=== PATIENT | male | born 1965 | race Caucasian/White ===

== ENCOUNTER 2018-08-20 23:04 | Observation (INO) | payer OTHER, SELFPAY ==
[2018-08-20 23:05] VITALS: BP 115/70; PULSE 104; RESP 14; TEMP 38; O2SAT 94; BMI 26.5
--- NOTE | 2018-08-20 23:28 | DI.RAD.S_ITS ---
PROCEDURE: XR CHEST 1V INDICATIONS: chest pain TECHNIQUE: One view of the chest was acquired. COMPARISON: [facility], , CHEST 1 VIEW, 12/14/2010, 13:45. FINDINGS: Surgical changes and devices: Post surgical changes of the proximal left humerus. Lungs and pleura: Minimal streaky opacities in the left retrocardiac region likely representing atelectasis/scarring. Lungs are otherwise clear without focal consolidation. No pleural effusions or pneumothorax. Mediastinum: Mediastinal contours appear normal. Heart size is normal. Bones and chest wall: No suspicious bony lesions. Overlying soft tissues appear unremarkable. IMPRESSION: Minimal left basilar streaky opacities favored to represent atelectasis/scarring. Otherwise, no acute disease identified to explain patient's chest pain. Dictated by: Benjamín Bailon M.D. on 08/21/2018 at 8:52 Approved by: Benjamín Bailon M.D. on 08/21/2018 at 9:17
[2018-08-20] MEDS: ONDANSETRON 4 MG/2 ML INJ IV (23:41)
[2018-08-20 23:49] LABS: Add Manual Diff / Slide Review NO; Basophils Absolute Auto 0 /uL (0-100); Basophils Percent Auto 0.2 % (0-2); Eosinophils Absolute Auto 0 /uL (0-450); Eosinophils Percent Auto 0.3 % (2-4); Hematocrit 43.5 % (41-53); Hemoglobin 15.3 g/dL (13.5-17.5); INR 1.1 (0.9-1.3); Lymphocytes Absolute Auto 400 /uL (1100-4500); Lymphocytes Percent Auto 4.5 % (25-40); Mean Corpuscular HGB Conc 35.2 % (30-36); Monocytes Absolute Auto 400 /uL (0-900); Monocytes Percent Auto 5.2 % (3-14); Neutrophils Absolute Auto 7200 /uL (1500-7000); Neutrophils Percent Auto 89.8 % (50-75); Platelet Count 144 X10^3/uL (150-400); Prothrombin Time 12.2 SECONDS (10.1-12.7); Red Blood Cell Count 4.94 X10^6/uL (4.5-5.9); Red Cell Distribution Width 13.3 % (11.6-14.8); White Blood Cell Count 8.1 X10^3/uL (4.5-11.0)
[2018-08-20 23:51] LABS: PTT Partial Thromboplastin Tim 31 SECONDS (26.4-36.2)
[2018-08-20 23:53] LABS: Alanine Aminotransferase 60 IU/L (21-72); Albumin 4.3 g/dL (3.5-5.0); Albumin Globulin Ratio 1.6 (1.0-2.8); Alkaline Phosphatase 103 U/L (38-126); Aspartate Aminotransferase 48 IU/L (17-59); BUN Creatinine Ratio 18.8 (6-22); Bilirubin Total 1.4 mg/dL (0.2-1.3); Blood Urea Nitrogen 15 mg/dL (9-20); Calcium 8.9 mg/dL (8.4-10.2); Carbon Dioxide 23 mmol/L (22-32); Chloride 103 mmol/L (98-107); Creatine Kinase 253 U/L (55-170); Estimated Glomerular Filt Rate > 60.0 mL/min (>60); Globulin 2.7 g/dL (1.7-4.1); Glucose 106 mg/dL (70-100); HEMOLYSIS < 15 (0-50); Lipase 45 U/L (23-300); Potassium 3.6 mmol/L (3.4-5.1); Sodium 136 mmol/L (137-145)
[2018-08-21] VITALS (30 sets, daily range): BP systolic 101–141; BP diastolic 50–82; PULSE 90–102; RESP 8–24; TEMP 37.1–38.9; O2SAT 89–96; BMI 26.5
--- NOTE | 2018-08-21 | DI.ECHO.S_ITS ---
[facility]+ [facility] +---------+ : : [address] : : : : [id number] : : : : Phone: [phone]+ Echocardiogram Report + + :Name: ANUSHA PHILLIPS Study Date: 08/21/2018 Height: 70 in : :[facility] Weight: 185 lb : : Gender: Male BSA: 2.0 m2 : :: 1965 Age: 53 yrs BP: 141/82 mmHg: :Reason For Study: CAD : : Performed By: Riya Palacios : :Referring: ANIL ABEL : + + Interpretation Summary 1) Borderline enlarged left ventricle with mildly reduced systolic function (EF 45-50%). 2) The inferior and the inferolateral gorman are akinetic. 3) Grossly, normal right ventricular size and function. 4) No significant valvular abnormalities. 5) Compared to the Echo done 12/06/2010, LVEF has slightly improved from 40-45% to 45-50% on this study. Procedure: A two-dimensional transthoracic echocardiogram with color flow and Doppler was performed. The study quality was technically adequate. Comparison is made with the echocardiogram of 12-16-10. The patient was in normal sinus rhythm during the exam. Left Ventricle: The left ventricle is borderline dilated. There is mild asymmetric left ventricular hypertrophy. The ejection fraction is estimated to be 45-50%. Left ventricular systolic function is mildly reduced. The inferior and the inferolateral gorman are akinetic. Diastolic parameters suggest a relaxation abnormality of the left ventricle, consistent with probable normal filling pressures. Right Ventricle: The right ventricle grossly appears normal in size with probable normal systolic function. Atria: The left atrium is mildly dilated. Right atrial size is normal. The interatrial septum is intact with no evidence for an atrial septal defect. Mitral Valve: The mitral valve is normal in structure and function. There is trace mitral regurgitation. Aortic Valve: The aortic valve is trileaflet. The aortic valve opens well. There is trace aortic regurgitation. Tricuspid Valve: The tricuspid valve is normal in structure and function. There is a trace or physiologic amount of tricuspid regurgitation. The right ventricular systolic pressure is estimated to be at least 31 mmHg based on an estimated right atrial pressure of 3 mm Hg. Pulmonic Valve: The pulmonic valve is not well seen, but is grossly normal. There is no pulmonic valvular regurgitation. Great Vessels: The aortic root is normal size. The dimensions of the ascending aorta are normal. The aortic arch is normal in size. The IVC is of normal diameter and collapses greater than 50% with a sniff. This suggests a low right atrial pressure of 3 mm Hg. Pericardium/ Pleura There is no pericardial effusion. There is no pleural effusion. MMode/2D Measurements & Calculations LVIDd: 6.0 cm Ao root diam: 3.4 cm LVIDs: 5.3 cm Aortic Jxn: 2.9 cm FS: 12.2 % asc Aorta Diam: 3.3 cm IVSd: 1.4 cm Ao Arch Diam (Prox Trans): 2.6 cm LVPWd: 0.16 cm LV jarrett. diameter/BSA (cm/m^2): 3.0 LV sys. diameter/BSA (cm/m^2): 2.6 LA dimension: 4.2 cm RA long axis: 5.3 cm LA A2 area: 23.0 cm2 RA area: 19.5 cm2 LA A4 area: 24.8 cm2 RA vol: 61.4 ml LA length (vol): 5.6 cm RA : 30.4 ml/m2 LA vol: 86.2 ml IVC diam: 1.3 cm LA vol index: 42.7 ml/m2 RVDd major: 5.7 cm RVD1 (basal): 3.5 cm RVD2 (mid): 3.1 cm Doppler Measurements & Calculations Ao V2 max: 154.8 cm/sec MV E max billy: 67.0 cm/sec Ao V2 mean: 99.3 cm/sec MV A max billy: 66.1 cm/sec Ao max P.6 mmHg MV E/A: 1.0 Ao mean P.7 mmHg Med Peak E' Billy: 5.9 cm/sec Ao V2 VTI: 28.6 cm E/E' med: 11.4 Lat Peak E' Billy: 9.5 cm/sec E/E' lat: 7.1 E/e' average: 9.2 MV dec time: 0.16 sec MV P1/2t: 49.9 msec TR max billy: 262.0 cm/sec MV P1/2t max billy: 67.5 cm/sec TR max P.5 mmHg MVA(P1/2t): 4.4 cm2 PA V2 max: 105.9 cm/sec PA V2 mean: 68.5 cm/sec PA mean P.2 mmHg PA Accel Time: 0.13 sec Reading Physician:01:09 PM
[2018-08-21 00:04] LABS: Influenza A and B by PCR Rapid Negative (Negative)
[2018-08-21 00:05] LABS: Troponin I < 0.012 ng/mL (0.01-0.034)
--- NOTE | 2018-08-21 00:07 | ED.CHESTPAIN ---
HPI - Chest Pain General Chief Complaint: Chest Pain Stated Complaint: Chest Pain Time Seen by Provider: 08/21/18 00:07 Source: patient Mode of arrival: EMS Limitations: no limitations History of Present Illness HPI narrative: The patient has coronary artery disease. He had stents placed April 2018. He has occasional angina requiring topical nitroglycerin. Tonight he developed rather severe angina, he did took a sublingual nitroglycerin. Pain persisted. EMS arrived and gave him a 2nd nitro. His pain is now resolved. He has no dyspnea. Pain was less than 1 hr. Although he has had other episodes mckenna's pain was more severe. He has been ill for 2 days. He has had a nonproductive cough. He has no associated headache, or sore throat. He has no neck pain. He is having spasmodic severe abdominal pain with nausea but no emesis. He has had no diarrhea. In addition to the nitro, he has been taking his medications for hypertension and hyperlipidemia. He takes daily aspirin. With the abdominal pain there is no diarrhea. He has no urinary symptoms. His main complaint at this moment is crampy abdominal pain. Related Data Home Medications Medication Instructions Recorded Confirmed aspirin 81 mg PO DAILY 08/21/18 08/21/18 atorvastatin 80 mg PO DAILY 08/21/18 08/21/18 isosorbide mononitrate 30 mg PO DAILY 08/21/18 08/21/18 metoprolol succinate 75 mg PO DAILY 08/21/18 08/21/18 nitroglycerin 0.4 mg SUBLINGUAL Q5-15M PRN 08/21/18 08/21/18 ticagrelor [Brilinta] 90 mg PO BID 08/21/18 08/21/18 Allergies Allergy/AdvReac Type Severity Reaction Status Date / Time INGREDIENT: NKDA - NO KNOWN Allergy Unknown Uncoded 10/12/17 11:58 DRUG ALLERGIES Review of Systems Review of Systems ROS Unobtainable: All systems reviewed & are unremarkable except as noted in HPI and below Constitutional Denies chills, Denies fever(s) and Denies lethargy Eyes Denies change in vision, Denies eye discharge, Denies irritation and Denies loss of vision Cardiovascular Reports as per HPI, Reports chest pain, Denies irregular heart rhythm, Denies lightheadedness, Denies palpitations, Denies dyspnea, Denies dyspnea on exertion and Denies orthopnea Respiratory Denies cough, Denies dyspnea, Denies dyspnea on exertion and Denies wheezing Gastrointestinal Gastrointestinal: Reports abdominal pain, Denies change in bowel habits, Denies diarrhea, Reports nausea and Denies vomiting Genitourinary Denies hematuria, Denies flank pain and Denies urinary urgency Musculoskeletal Denies back pain, Denies muscle weakness, Denies numbness and Denies tingling Integumentary/Breasts Denies pruritus, Denies erythema, Denies rash and Denies wounds Neurologic Denies loss of vision, Denies numbness and Denies tingling Endocrine Denies palpitations Allergic/Immunologic Denies wheezing PFSH Medical History Coronary artery disease (Acute) Hyperlipidemia (Acute) Hypertension (Acute) Surgical History S/P angioplasty with stent (Acute) Social History Smoking Status: Never smoker Social History Smoking Status: Never smoker Exam Initial Vital Signs Initial Vital Signs: Vital Signs Temperature 100.4 F H 08/20/18 23:05 Pulse Rate 104 H 08/20/18 23:05 Respiratory Rate 14 08/20/18 23:05 Blood Pressure 115/70 08/20/18 23:05 Pulse Oximetry 94 08/20/18 23:05 Const General: cooperative and well developed Nutritional Appearance: well nourished Orientation: alert, awake, oriented x3 and not confused [facility] Head: normocephalic and atraumatic Nose: external nose normal Face and sinus: sinuses nontender, face symmetric and no sinus tenderness Mouth: oral mucosae normal and moist mucous membranes Throat: posterior oropharynx normal, tonsils normal and uvula midline Eyes Conjunctivae: conjunctivae normal Neck Neck: No JVD Lymphatic: No lymphadenopathy Chest Chest: normal inspection of the chest and No tenderness Resp Effort & Inspection: normal respiratory effort, able to speak in complete sentences, no respiratory distress and no use of accessory muscles Auscultation: clear to auscultation bilaterally, no rales, no rhonchi and no wheezes Cardio Rate: regular rate Rhythm: regular rhythm Heart Sounds: no click, no gallops, no murmurs and no rubs Pulses: normal peripheral pulses GI Inspection: non-distended Palpation: soft, no hepatosplenomegaly, No pulsatile mass and No tender (Central abdominal tenderness without distention, guarding or rebound) Auscultation: normal bowel sounds Back/Spine/Pelvis Back: No CVA tenderness Skin General: no rashes or lesions noted, No jaundice and No petechiae Neuro General: alert, oriented x3, gait normal and no focal motor deficits Speech: speech normal Course Course Narrative: The patient has been asymptomatic of chest pain since arrival. He has required occasional use of sublingual nitroglycerin since undergoing angioplasty with stents April 2018. It is noted he has been ill for 2 days. However he developed chest pain at rest significant more severe than he has experienced in recent months. He had no associated dyspnea. He took a single nitro, without resolution. Chest pain persisted, paramedics were summoned. A 2nd nitro was given, the chest pain did resolve. He had pain for about 1 hr duration. The pain was more severe and of a much greater duration than he is used to experiencing. With his recent illness he was having abdominal cramps and fever upon arrival. He has improved with the medications given. An initial and 2nd troponin are negative. The EKG shows no evidence of STEMI. There is no evidence of sepsis or acute infection needing further intervention. He likely has a viral illness. The chest pain is more concerning, particularly with the potential escalation of angina symptoms. 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 Orders Ordered: ED Orders 08/20/18 23:28 XR chest 1V Stat 08/20/18 23:36 Complete Blood Count AUTO DIFF Stat Comprehensive Metabolic Panel Stat Lipase Stat Partial Thromboplastin Time Stat Prothrombin Time INR Stat Troponin & CK Cardiac Panel Stat 08/20/18 23:46 FLU A and B [Influenza A and B by PCR Rapid] Stat 08/21/18 00:24 Lactate (Lactic Acid) Stat 08/21/18 01:34 Troponin & CK Cardiac Panel Stat Sodium Chloride (Normal Saline 0.9%) 1,000 mls @ 150 mls/hr IV CONT JESUS Last Admin: 08/21/18 00:52 Dose: 150 mls/hr Discontinued Medications Morphine Sulfate (Morphine) 4 mg IV NOW ONE Stop: 08/21/18 00:29 Last Admin: 08/21/18 00:51 Dose: 4 mg Nitroglycerin (Nitro-Bid) 0.5 inch TOP NOW ONE Stop: 08/21/18 00:19 Last Admin: 08/21/18 00:50 Dose: 0.5 inch Ondansetron HCl (Zofran) 4 mg IV NOW ONE Stop: 08/20/18 23:38 Last Admin: 08/20/18 23:41 Dose: 4 mg Ondansetron HCl (Zofran) 4 mg IV NOW ONE Stop: 08/21/18 00:19 Last Admin: 08/21/18 00:52 Dose: 4 mg Vital Signs - 8 hr 08/20/18 23:05 08/21/18 00:02 08/21/18 00:32 Temperature 100.4 F H Pulse Rate 104 H 102 H 99 H Respiratory Rate 14 14 8 L Blood Pressure 115/70 Blood Pressure [Left Arm] 119/72 109/66 Pulse Oximetry 94 95 94 08/21/18 00:50 08/21/18 01:06 08/21/18 01:34 Temperature Pulse Rate 96 H 99 H 96 H Respiratory Rate 12 16 Blood Pressure 109/66 Blood Pressure [Left Arm] 112/62 103/59 L Pulse Oximetry 95 95 08/21/18 01:43 08/21/18 02:31 Temperature 99.1 F Pulse Rate 98 H Respiratory Rate 23 Blood Pressure Blood Pressure [Left Arm] 104/55 L Pulse Oximetry 94 MDM - Chest Pain Medical Records Data Attestation: I reviewed the patient's medical records. Lab Data Attestation: I reviewed the patient's lab results. Result diagrams: 08/20/18 23:36 08/20/18 23:36 Lab Results 08/20/18 08/20/18 08/20/18 Range/Units 23:36 23:36 23:36 WBC 8.1 (4.5-11.0) X10^3/uL RBC 4.94 (4.5-5.9) X10^6/uL Hgb 15.3 (13.5-17.5) g/dL Hct 43.5 (41-53) % MCV 88.0 (80-100) fL MCH 31.0 (26-34) PG MCHC 35.2 (30-36) % RDW 13.3 (11.6-14.8) % Plt Count 144 L (150-400) X10^3/uL Neut % (Auto) 89.8 H (50-75) % Lymph % (Auto) 4.5 L (25-40) % Tift % (Auto) 5.2 (3-14) % Eos % (Auto) 0.3 L (2-4) % Baso % (Auto) 0.2 (0-2) % Neut # (Auto) 7200 H (6494-5756) /uL Lymph # (Auto) 400 L (4157-6125) /uL Tift # (Auto) 400 (0-900) /uL Eos # (Auto) 0 (0-450) /uL Baso # (Auto) 0 (0-100) /uL PT 12.2 (10.1-12.7) SECONDS INR 1.1 (0.9-1.3) APTT 31 (26.4-36.2) SECONDS Sodium 136 L (137-145) mmol/L Potassium 3.6 (3.4-5.1) mmol/L Chloride 103 (98-107) mmol/L Carbon Dioxide 23 (22-32) mmol/L BUN 15 (9-20) mg/dL Creatinine 0.80 (0.66-1.25) mg/dL Estimated GFR > 60.0 (>60) mL/min BUN/Creatinine Ratio 18.8 (6-22) Glucose 106 H (70-100) mg/dL Lactate (0.7-2.1) mmol/L Calcium 8.9 (8.4-10.2) mg/dL Total Bilirubin 1.4 H (0.2-1.3) mg/dL AST 48 (17-59) IU/L ALT 60 (21-72) IU/L Alkaline Phosphatase 103 (38-126) U/L Total Creatine Kinase 253 H (55-170) U/L CK-MB (CK-2) 0.41 (<2.37) ng/mL CK-MB (CK-2) Rel Index 0.2 L (1.5-5.0) % Troponin I < 0.012 (0.01-0.034) ng/mL Total Protein 7.0 (6.3-8.2) g/dL Albumin 4.3 (3.5-5.0) g/dL Globulin 2.7 (1.7-4.1) g/dL Albumin/Globulin Ratio 1.6 (1.0-2.8) Lipase 45 (23-300) U/L Influenza A & B (PCR) (Negative) 08/20/18 08/21/18 08/21/18 Range/Units 23:46 00:24 01:34 WBC (4.5-11.0) X10^3/uL RBC (4.5-5.9) X10^6/uL Hgb (13.5-17.5) g/dL Hct (41-53) % MCV (80-100) fL MCH (26-34) PG MCHC (30-36) % RDW (11.6-14.8) % Plt Count (150-400) X10^3/uL Neut % (Auto) (50-75) % Lymph % (Auto) (25-40) % Tift % (Auto) (3-14) % Eos % (Auto) (2-4) % Baso % (Auto) (0-2) % Neut # (Auto) (9082-7128) /uL Lymph # (Auto) (3719-9296) /uL Tift # (Auto) (0-900) /uL Eos # (Auto) (0-450) /uL Baso # (Auto) (0-100) /uL PT (10.1-12.7) SECONDS INR (0.9-1.3) APTT (26.4-36.2) SECONDS Sodium (137-145) mmol/L Potassium (3.4-5.1) mmol/L Chloride (98-107) mmol/L Carbon Dioxide (22-32) mmol/L BUN (9-20) mg/dL Creatinine (0.66-1.25) mg/dL Estimated GFR (>60) mL/min BUN/Creatinine Ratio (6-22) Glucose (70-100) mg/dL Lactate 0.7 (0.7-2.1) mmol/L Calcium (8.4-10.2) mg/dL Total Bilirubin (0.2-1.3) mg/dL AST (17-59) IU/L ALT (21-72) IU/L Alkaline Phosphatase (38-126) U/L Total Creatine Kinase 216 H (55-170) U/L CK-MB (CK-2) 0.34 (<2.37) ng/mL CK-MB (CK-2) Rel Index 0.2 L (1.5-5.0) % Troponin I < 0.012 (0.01-0.034) ng/mL Total Protein (6.3-8.2) g/dL Albumin (3.5-5.0) g/dL Globulin (1.7-4.1) g/dL Albumin/Globulin Ratio (1.0-2.8) Lipase (23-300) U/L Influenza A & B (PCR) Negative (Negative) Imaging Data Chest x-ray: My impression: Normal ECG Data Attestation: I personally reviewed and interpreted this ECG as follows: (Ectopic atrial rhythm. Pattern consistent with pulmonary disease. Probable old anterior lateral MN, no acute ST T wave changes.) MDM Narrative Medical decision making narrative: The can call situation was discussed with the hospitalist, SINA Baeza. The understanding is he probably has a viral syndrome. However concern is of escalating chest pain, unstable angina. He is currently asymptomatic he will be admitted to telemetry. He has taken aspirin today and his blood pressure medications today, topical nitroglycerin was added to his treatment earlier. His abdominal pain is improved with Toradol and Zofran. Discharge Plan Departure Patient Disposition: Admitted as Observation Clinical Impression: Unstable angina pectoris, Viral syndrome Referrals: Ed Hernandez MD [Primary Care Provider] -
[2018-08-21 00:08] LABS: CKMB % Relative Index 0.2 % (1.5-5.0); Creatine Kinase MB 0.41 ng/mL (<2.37)
[2018-08-21 00:41] LABS: Lactate (Lactic Acid) 0.7 mmol/L (0.7-2.1)
[2018-08-21] MEDS: NITROGLYCERIN OINT 1 INCH/GM OINT...G. 0.5 INCH TOP ×3 (00:50→16:17)
[2018-08-21] MEDS: MORPHINE 4 MG/ML INJ IV (00:51)
[2018-08-21] MEDS: ONDANSETRON 4 MG/2 ML INJ IV ×2 (00:52→04:57)
[2018-08-21] MEDS: SODIUM CHLORIDE 0.9% 1,000 ML 150 ML IV ×4 (00:52→22:58)
[2018-08-21 01:52] LABS: Creatine Kinase 216 U/L (55-170)
[2018-08-21 02:04] LABS: Troponin I < 0.012 ng/mL (0.01-0.034)
[2018-08-21 02:07] LABS: CKMB % Relative Index 0.2 % (1.5-5.0); Creatine Kinase MB 0.34 ng/mL (<2.37)
--- NOTE | 2018-08-21 04:36 | PM.HP.1 ---
History of Present Illness Date Patient Seen: 08/21/18 Time Patient Seen: 03:45 Chief complaint: Chest Pain Narrative: This is a 53-year-old male patient with extensive cardiac history, including atherosclerosis, DE, hypertension and hyperlipidemia presents to the ER today with chest pain. Patient describes accelerated chest pain today after working on his house in preparation for his daughter's wedding. The patient typically has had episodic chest pain since his DE and stent placement in April reporting taking occasional nitroglycerin as needed for chest pain unrelieved with rest. Today he took 2 nitroglycerin sublinguals and called 911. Patient has a prior history of an anterior lateral and inferior infarct. He has been followed by Dr. [facility] and has Dr. Ramirez as his primary care physician. The patient describes the pain he experienced today as different than his typical chest pain and more severe. He had additional symptoms of chills, fatigue, dry cough and crampy abdominal pain. The patient endorses work and stress intolerance that exacerbates his chest pain and epigastric pain. He has dyspnea on exertion. Typically his anginal pain is resolved with rest however he has been taking nitroglycerin more recently twice monthly. He also reports that he will wake at night with severe epigastric discomfort. He has been working with his physicians and feels that he had been slowly improving with less symptom frequency until today when he feels he over exerted himself. He additionally reports during his episode of chest pain he had left neck and facial numbness with blurriness of the left eye and describes his vision as coning down. Denies ataxia or extremity weakness. He does relate worsening memory with impaired recall. Patient arrived in the emergency department at 11:05 p.m by EMS. His initial vital signs were temperature 100.4?, blood pressure 115/70, heart rate of 104, respirations of 14 and 94% on room air. In the ER he received morphine and nitroglycerin topical paste 1/2 inch. He received normal saline and Zofran for nausea. Chest x-ray was taken which shows no significant infiltrates and no cardiomyopathy. Twelve lead EKG reveals sinus rhythm with ventricular rate at 99 without ectopy or block but reflective of prior inferior and anterior lateral infarcts. On laboratory analysis his CBC is within normal range however his platelets are low at 144, has an INR 1.1 with a PT of 31. He has a total CK that is elevated to 16 however his MB is negative at 0.34 as is his index at 0.2. Troponin is evaluated twice in the emergency room finding both be negative at less than 0.012. On chemistry he has a sodium 136, potassium, 3.6 with a BUN of 15 and creatinine of 0.8. His nonfasting glucose is 106. Patient is pain-free in the emergency department with topical nitro and the patient is admitted for [place] rated chest pain, unstable angina. Patient History Medical History Coronary artery disease (Acute) Hyperlipidemia (Acute) Hypertension (Acute) Surgical History History of shoulder surgery (Acute) S/P angioplasty with stent (Acute) Social History household members: children Smoking Status: Never smoker Family & Social History Safety & Behavioral: Feels Safe in Current Yes Environment Been Physically Hurt or No Threatened By a Person Tobacco & Substance use: Smoking Status Never smoker alcohol intake frequency 0-2 drinks per day Substance Use Type does not use Comment: The patient has been for 9 years after 15 years of marriage. He currently lives in a house with his 2 daughters 1 whom is getting in the other 17-year-old both in good health. Patient's parents are both his father had pancreatic cancer in his mother had multiple cancers. He has 1 sister who has rheumatoid arthritis. Occupation: project portfolio analyst, contractor Smoking: The patient has never smoked Alcohol: Occasional mixed drink 1 time a week, occasional wine Substance use: No recreational pharmaceuticals or cannabis products Advanced directives: The patient has records on file but indicates today that he would like to be full code however does not want prolonged life-sustaining measures. He does eat meats his daughter Albertina to be his surrogate decision maker. Meds Home Medications Medication Instructions Recorded Confirmed Type aspirin 81 mg PO DAILY 08/21/18 08/21/18 History atorvastatin 80 mg PO DAILY 08/21/18 08/21/18 History isosorbide mononitrate 30 mg PO DAILY 08/21/18 08/21/18 History metoprolol succinate 75 mg PO DAILY 08/21/18 08/21/18 History nitroglycerin 0.4 mg SUBLINGUAL Q5-15M PRN 08/21/18 08/21/18 History ticagrelor [Brilinta] 90 mg PO BID 08/21/18 08/21/18 History Allergies Allergy/AdvReac Type Severity Reaction Status Date / Time INGREDIENT: NKDA - NO KNOWN Allergy Unknown Uncoded 10/12/17 11:58 DRUG ALLERGIES Review of Systems Review of Systems Constitutional: Positive for chills and fatigue, general poor activity tolerance, denies change in appetite or weight Eyes: Positive for episode of visual changes associated with chest, Denies denies floaters, diplopia ENT: Positive for occasional headaches Denies hearing changes, no nasal congestion, rhinorrhea, no dysphagia, sore throat or dentalgia, no neck stiffness or pain Respiratory: Positive for dyspnea on exertion, dry cough Denies SOB, wheezing Cardiovascular: Positive for history of inferior and anterolateral DE, stable angina, Denies palpitations, orthostatic dizziness, syncope, edema Gastrointestinal: Positive for epigastric pain, crampy abdominal pain, nausea, Denies vomiting constipation or diarrhea, denies blood in stool. Genitourinary: denies penile discharge, no complains of frequency, burning or urgency, hematuria on voiding Musculoskeletal: Positive for surgery left shoulder with reduced range of motion, denies falls, weakness, cramps, edema, myalgia or joint swelling. Integumentary: denies skin lesions, masses, rashes, hives, itching or hair loss Neurological: Positive for episode of left neck facial numbness, visual disturbance and left facial droop today, impaired memory denies dizziness, numbness or tingling, speech difficulties or seizures Psychiatric: denies disturbances in thought, attentions or mood, denies substance abuse Endocrine: denies excessive thirst frequent urination goiter, lethargy, abnormal sweating, and heat/cold intolerance. Heme/lymph: Positive for blood thinner, Denies lymphadenopathy, abnormal bleeding or bruising Exam Vital Signs (past 8 hours): - 08/20/18 23:05 08/21/18 00:02 08/21/18 00:32 Temperature 100.4 F H Pulse Rate 104 H 102 H 99 H Respiratory Rate 14 14 8 L Blood Pressure 115/70 Blood Pressure [Left Arm] 119/72 109/66 Pulse Oximetry 94 95 94 08/21/18 00:50 08/21/18 01:06 08/21/18 01:34 Temperature Pulse Rate 96 H 99 H 96 H Respiratory Rate 12 16 Blood Pressure 109/66 Blood Pressure [Left Arm] 112/62 103/59 L Pulse Oximetry 95 95 08/21/18 01:43 08/21/18 02:31 08/21/18 03:00 Temperature 99.1 F 99.0 F Pulse Rate 98 H 96 H Respiratory Rate 23 21 Blood Pressure Blood Pressure [Left Arm] 104/55 L 101/50 L Pulse Oximetry 94 94 08/21/18 03:24 08/21/18 03:25 08/21/18 03:30 Temperature 99 F 99.0 F Pulse Rate 94 H Respiratory Rate 22 Blood Pressure 101/50 L Blood Pressure [Left Arm] 102/57 L Pulse Oximetry 95 08/21/18 04:30 Temperature 101.4 F H Pulse Rate 96 H Respiratory Rate 19 Blood Pressure 141/82 H Blood Pressure [Left Arm] Pulse Oximetry 95 Oxygen Delivery Method Room Air Oxygen Flow Rate 0 Narrative Exam Narrative: General: Well developed, well nourished, ill-appearing Skin: Warm, dry, pink, no rashes, no visible lesions HEENT: Normocephalic, PERRLA, EOMs intact without nystagmus, conjunctiva moist, sclera is anicteric, hearing grossly normal, no sinus tenderness to percussion, no rhinorrhea, oropharynx is moist and pink without lesions or exudate, uvula midline, posterior pharynx without inflammation, no cervical lymphadenopathy Neck: Supple, tender to palpation posteriorly without muscular spasms, no masses, no thyromegaly, trachea midline, no carotid bruits or JVD, no supraclavicular lymphadenopathy Cardiac: Regular rate and rhythm, S1-S2, no murmur, no gallops or rubs, 2+ radial pulse, 1+ dorsalis pedis pulse, capillary refill is brisk, no edema Chest: Symmetrical movement, breathing non labored, no cough present, BS equal bilateral without coarseness, crackles or wheezes Abdomen: Soft, mild epigastric tenderness or guarding, dull to percussion, no masses or organomegaly, no flank or suprapubic pain, BS normal. Back: Normal curvature, no tenderness to palpation Extremities: Full ROM, no synovial effusions or deformities, strength 5/5 and symmetrical Neuro: AAOx4, cranial nerves II-XII grossly intact, no pronator drift, distal sensation intact to light touch, no paresthesias Psych: pleasant, thought coherent, stable mood with flat affect Objective Labs Result Diagrams: 08/20/18 23:36 08/20/18 23:36 Labs: Laboratory Results - last 24 hr 08/20/18 08/20/18 08/20/18 23:36 23:36 23:36 WBC 8.1 RBC 4.94 Hgb 15.3 Hct 43.5 MCV 88.0 MCH 31.0 MCHC 35.2 RDW 13.3 Plt Count 144 L Neut % (Auto) 89.8 H Lymph % (Auto) 4.5 L [place] % (Auto) 5.2 Eos % (Auto) 0.3 L Baso % (Auto) 0.2 Neut # (Auto) 7200 H Lymph # (Auto) 400 L [place] # (Auto) 400 Eos # (Auto) 0 Baso # (Auto) 0 PT 12.2 INR 1.1 APTT 31 Sodium 136 L Potassium 3.6 Chloride 103 Carbon Dioxide 23 BUN 15 Creatinine 0.80 Estimated GFR > 60.0 BUN/Creatinine Ratio 18.8 Glucose 106 H Lactate Calcium 8.9 Total Bilirubin 1.4 H AST 48 ALT 60 Alkaline Phosphatase 103 Total Creatine Kinase 253 H CK-MB (CK-2) 0.41 CK-MB (CK-2) Rel Index 0.2 L Troponin I < 0.012 Total Protein 7.0 Albumin 4.3 Globulin 2.7 Albumin/Globulin Ratio 1.6 Lipase 45 Influenza A & B (PCR) 08/20/18 08/21/18 08/21/18 23:46 00:24 01:34 WBC RBC Hgb Hct MCV MCH MCHC RDW Plt Count Neut % (Auto) Lymph % (Auto) [place] % (Auto) Eos % (Auto) Baso % (Auto) Neut # (Auto) Lymph # (Auto) [place] # (Auto) Eos # (Auto) Baso # (Auto) PT INR APTT Sodium Potassium Chloride Carbon Dioxide BUN Creatinine Estimated GFR BUN/Creatinine Ratio Glucose Lactate 0.7 Calcium Total Bilirubin AST ALT Alkaline Phosphatase Total Creatine Kinase 216 H CK-MB (CK-2) 0.34 CK-MB (CK-2) Rel Index 0.2 L Troponin I < 0.012 Total Protein Albumin Globulin Albumin/Globulin Ratio Lipase Influenza A & B (PCR) Negative Assessment & Plan Assessment & Plan narrative: The patient is admitted unstable angina with a history of prior MIs and neurologic disturbance. 1. Unstable angina, acute -patient with prior history of inferior and anterolateral MIs with previous stent placement in unknown vessel -chest pain typically resolved with rest however patient has been more reliant on nitroglycerin most recently using nitroglycerin approximately 2 times per month -today patient required 2 nitro and then called 911 -chest pain resolved in the ER with morphine and nitro paste -will continue Nitro-Bid 1/2 inch topically -will continue patient's home medications of aspirin, Brilinta and isosorbide -the patient will be monitored on telemetry and will recheck troponin in the morning 2. Neurological symptoms, acute -patient describes new onset left facial numbness and visual change that have resolved -unclear whether related to intracranial pathology or hypoperfusion -will obtain an MR stroke protocol 3. Dyspepsia, chronic -patient describes episodic epigastric pain occurring at night where he has to get up and drink water and crackers -pain much worse tonight associated with nausea, epigastric discomfort improved with the ER treatment -will continue Protonix 20 mg daily 4. Hypertension, chronic -blood pressure remains well within normal range -will continue metoprolol 75 mg and isosorbide 30 mg daily 5. Hyperlipidemia, chronic -patient is on atorvastatin 80 mg daily which will be continued Patient is admitted to the hospital observation status for unstable angina requiring close monitoring with high risk of complications. Expected length of stay 1 midnight. Time Spent With Patient Time with patient: 25 - 35 minutes Scores GCS [place] coma scale eye opening: Spontaneous [place] coma scale verbal response: Orientated [place] coma scale motor response: Obey commands Tony coma scale total score: 15 ABCD2 Age >= 60 years: no Initial BP. Either SBP >= 140 or DBP >= 90.: no Clinical features of the TIA: other symptoms (Left facial numbness and visual change) Duration of symptoms: 10-59 minutes History of diabetes: no ABCD2 Score: 1
[2018-08-21] MEDS: ACETAMINOPHEN 325 MG TABLET 650 MG PO ×3 (04:56→21:20)
--- NOTE | 2018-08-21 05:20 | PC.NURSE ---
Pt arrived on unit at approx 0430, A and O x 4, temp of 101.4 F and abdominal pain. He denies chest pain. He is sinus tachy, HR = 104. LS clear, + BT. Last BM 08/19/17, has eaten normally prior to admit. No vomiting, slight nausea. Given 4 mg IVP Zofran with good results and 650 mg APAP for fever.
[2018-08-21] MEDS: MORPHINE 2 MG/ML INJ IV (06:03)
[2018-08-21] MEDS: METOCLOPRAMIDE 10 MG/2 ML INJ 5 MG IV (06:14)
[2018-08-21 07:22] LABS: Cholesterol 109 mg/dL (140-199); HDL Cholesterol 32 mg/dL (40-60); LDL Cholesterol Calculated 64 mg/dL (<100); Triglycerides 67 mg/dL (35-150)
[2018-08-21 07:23] LABS: Troponin I < 0.012 ng/mL (0.01-0.034)
[2018-08-21 07:32] LABS: BUN Creatinine Ratio 17.5 (6-22); Blood Urea Nitrogen 14 mg/dL (9-20); Calcium 8.3 mg/dL (8.4-10.2); Carbon Dioxide 22 mmol/L (22-32); Chloride 102 mmol/L (98-107); Estimated Glomerular Filt Rate > 60.0 mL/min (>60); Glucose 110 mg/dL (70-100); HEMOLYSIS < 15 (0-50); Potassium 3.7 mmol/L (3.4-5.1); Sodium 135 mmol/L (137-145)
[2018-08-21] MEDS: PANTOPRAZOLE 20 MG TABLET PO (09:00)
[2018-08-21] MEDS: ASPIRIN EC 81 MG TABLET PO (09:00)
[2018-08-21] MEDS: METOPROLOL IR 25 MG TABLET 75 MG PO (09:01)
--- NOTE | 2018-08-21 11:57 | PC.NURSE ---
Addendum entered by Stephanie Zimmer R.N. 08/21/18 13:52: Temp spiked up to 102. This curriculum writer let Dr Palm know. Admin Tylenol + Tessalon jennyfer (per new order). Respiratory panel collected and sent to lab. Back in bed after showering. Re-placed tele and pulse ox, restarted IV fluids. Agrees to call with needs/concerns. Light in reach. Original Note: Shift summary: Dozing intermittently, awakens easily. Alert and oriented X3. Denies chest pain/pressure/palpitations. Reports very slight shortness of breath. Does well on room air when awake, but de-sats into the upper 80's asleep- wearing nasal cannula at 1L to maintain sats>92% Lungs CTA. HRR. Denies facial numbness or blurred vision at this time. Denies nausea. Denies pain other than slight headache from the nitro paste. Vitals stable, denied dizziness or lightheadedness with ambulation. Calls appropriately for SBA OOB. ECHO has been completed. MRI cancelled by Dr Palm. Tele monitoring ongoing. IVF per orders, site in L hand WNL. Able to make needs known and calls appropriately, light in reach.
[2018-08-21] MEDS: ATORVASTATIN 20 MG TABLET 80 MG PO (12:15)
[2018-08-21] MEDS: ISOSORBIDE MONONITRATE ER 30 MG TABLET PO (12:17)
[2018-08-21 12:36] LABS: Creatine Kinase 129 U/L (55-170)
[2018-08-21 12:49] LABS: Troponin I < 0.012 ng/mL (0.01-0.034)
[2018-08-21 13:16] LABS: CKMB % Relative Index 0.2 % (1.5-5.0); Creatine Kinase MB < 0.22 ng/mL (<2.37)
[2018-08-21] MEDS: BENZONATATE 100 MG CAPSULE PO ×2 (13:38→22:58)
--- NOTE | 2018-08-21 15:37 | CM.DANOTE ---
Addendum entered by Neda Campbell LPN 08/22/18 13:28: correction: 102 temp (not team...see note below) Original Note: Discharge Planning/Care Management DCP: assessment: case received and discussed in Team Rounds. Pt is a 53 year old male who admitted to care of the hospitalist team at about [address] Palm is following him today although her documentation is not yet available in the EMR. Documentation reveals that pt does have a cardiac history: PA and stent in April. Neurologist: Dr. Peralta. PCP: listed as Dr. Hernandez but he is no longer with [facility]. Will check to see if he is still with this clinic. Testing is in process> Admission status: currently OBS, confirmed by UR KANIKA Rudolph. Payer: [facility] KANIKA Brown reports pt now with a 102 team and on one Litre for some shortness of breath. A respiratory panel has been ordered. Will check in tomorrow as more is know and follow prn for d/c issues and options. (noting that pt was working on his house to get it ready for his daughter Albertina's pending wedding.) CM Discharge Assessment Start: 08/21/18 15:34 Freq: Status: Active Protocol: Document 08/21/18 15:34 ITV (Rec: 08/21/18 15:37 ITV [id number]) Discharge Planning Assessment History Provided By Medical Record Has Patient been admitted in last 30 No days? Prior Living Arrangements House Household Members children Comment his 17 year old daughter and his older daughter Carri: also identified as his surrogate decisiom maker per SINA Baeza/admitting hospitalist. Review Status In Process Next Review Type Continued Stay Review
[2018-08-21 15:45] LABS: Adenovirus Not Detected (Not Detect); Bordetella pertussis Not Detected (Not Detect); Chlamydophila pneumoniae Not Detected (Not Detect); Coronavirus 229E Not Detected (Not Detect); Coronavirus HKU1 Not Detected (Not Detect); Coronavirus NL 63 Not Detected (Not Detect); Coronavirus OC43 Not Detected (Not Detect); Human Metapneumovirus Not Detected (Not Detect); Human Rhinovirus/Enterovirus Not Detected (Not Detect); Influenza A Not Detected (Not Detect); Influenza B Not Detected (Not Detect); Parainfluenza Virus 1 Not Detected (Not Detect); Parainfluenza Virus 2 Not Detected (Not Detect); Parainfluenza Virus 3 Not Detected (Not Detect); Parainfluenza Virus 4 Not Detected (Not Detect); Respiratory Syncytial Virus Not Detected (Not Detect)
[2018-08-21 15:46] LABS: Mycoplasma pneumoniae Not Detected (Not Detect)
[2018-08-21 15:55] LABS: Hematocrit 42.9 % (41-53); Hemoglobin 14.5 g/dL (13.5-17.5); Mean Corpuscular HGB Conc 33.7 % (30-36); Mean Corpuscular Hemoglobin 30.6 PG (26-34); Mean Corpuscular Volume 90.7 fL (80-100); Platelet Count 135 X10^3/uL (150-400); Red Blood Cell Count 4.73 X10^6/uL (4.5-5.9); Red Cell Distribution Width 13.8 % (11.6-14.8); White Blood Cell Count 6.9 X10^3/uL (4.5-11.0)
[2018-08-21 16:42] LABS: Add Manual Diff / Slide Review YES
[2018-08-21 16:58] LABS: Neutrophils Absolute Manual 6348 /uL (3000-5900); RBC Morphology Normal Morphology; Total Cells Counted 100
[2018-08-21] MEDS: METOPROLOL ER 25 MG TABLET PO (21:19)
--- NOTE | 2018-08-21 23:52 | PC.NURSE ---
Evening notes: Patient has slept off & on tonight, denies nausea for the 1st time since I've been here. Denies any chest pain or SOB. Nitro paste placed per schedule. BP 103/66 & 124/77. HR 90's. Has been running low grade temperatures tonight, 100.8 and later 100.2. Denies chills. Medicated with Tylenol at bedtime per his request. Respiratory swab is negative. NS continues to infuse without difficulty to IV left hand at 150/hr as ordered. Pt able to eat dinner, denied need for HS snack. Patient aware he is to have stress test in AM, & has had no caffeine. Aware he is to be NPO at 0600. Remains Ox3 tonight, using call button appropriately. Report given to NOC KANIKA Delcid.
[2018-08-22] VITALS (7 sets, daily range): BP systolic 117–143; BP diastolic 65–84; PULSE 78–92; RESP 16; TEMP 36.7–37.5; O2SAT 91–97
[2018-08-22] MEDS: PANTOPRAZOLE 20 MG TABLET PO (05:20)
[2018-08-22] MEDS: SODIUM CHLORIDE 0.9% 1,000 ML 150 ML IV (05:22)
[2018-08-22 05:55] LABS: Hematocrit 39.7 % (41-53); Hemoglobin 13.4 g/dL (13.5-17.5); Mean Corpuscular HGB Conc 33.8 % (30-36); Mean Corpuscular Hemoglobin 30.6 PG (26-34); Mean Corpuscular Volume 90.6 fL (80-100); Platelet Count 105 X10^3/uL (150-400); Red Blood Cell Count 4.38 X10^6/uL (4.5-5.9); Red Cell Distribution Width 13.6 % (11.6-14.8); White Blood Cell Count 3.3 X10^3/uL (4.5-11.0)
[2018-08-22 06:03] LABS: Add Manual Diff / Slide Review YES
[2018-08-22 06:06] LABS: Blood Urea Nitrogen 12 mg/dL (9-20); Carbon Dioxide 24 mmol/L (22-32); Chloride 107 mmol/L (98-107); Estimated Glomerular Filt Rate > 60.0 mL/min (>60); Glucose 98 mg/dL (70-100); HEMOLYSIS < 15 (0-50); Potassium 3.7 mmol/L (3.4-5.1); Sodium 138 mmol/L (137-145)
[2018-08-22 07:26] LABS: Neutrophils Absolute Manual 2211 /uL (3000-5900); Platelet Estimate Decreased on smear; RBC Morphology Normal Morphology; Total Cells Counted 100
--- NOTE | 2018-08-22 09:21 | PC.NURSE ---
Addendum entered by Fabiola Damico R.N. 08/22/18 10:44: Pt back to room from stress test. Voided and resting in bed. Denies chest pain or nausea and states he is very hungry. Original Note: Addendum entered by Fabiola Damico R.N. 08/22/18 09:42: Nitro patch removed prior to stress test by Natalee BOUDREAUX Original Note: Pt to Radiology for stress test via w/c
--- NOTE | 2018-08-22 09:30 | PM.TREADMILL ---
Cardiac Stress Test Report Referral & Results Date Patient Seen: 08/22/18 Time Patient Seen: 09:00 Requesting provider: Julianna Palm Indication: Chest pain, patient with known coronary disease Rest ECG: Deep Q-waves inferiorly and laterally Procedure Note: Today following both written and verbal informed consent the patient was exercised according to a standard Ariel protocol patient went for a total of 7 min 3 sec achieving a maximum heart rate of 132 maximum systolic blood pressure of 160. This is approximately 10.1 METS. Exercise was terminated at this point because of 5/10 chest pain and inability to continue. Patient was also given Cardiolite through a previously started Hep-Lock IV by the chief nuclear medicine technologist approximately 1 minute prior to the cessation of exercise. There are no ST-T segment changes Patient did experience 5/10 maximum chest pain with exercise the diminished prior to discontinuation monitoring. No dysrhythmias Functional aerobic impairment rated 20% on the sedentary scale Patient failed to meet heart rate target as the test was terminated early because of rising chest pain and patient fatigue Impression: No clear evidence of ischemia Limited exercise capacity as above Perfusion imaging to be reported separately Please note: Actual ECG tracings can be found in the PACS system.
[2018-08-22] MEDS: ASPIRIN EC 81 MG TABLET PO (11:02)
[2018-08-22] MEDS: BENZONATATE 100 MG CAPSULE PO (11:02)
[2018-08-22] MEDS: ATORVASTATIN 20 MG TABLET 80 MG PO (12:02)
[2018-08-22] MEDS: ISOSORBIDE MONONITRATE ER 60 MG PO (12:03)
--- NOTE | 2018-08-22 12:29 | PM.PN.1 ---
Subjective Date Patient Seen: 08/22/18 Interval history: Faheem Zapata is a 53-year-old male with a past medical history significant for coronary artery disease status post inferiolateral MD and cardiac catheterization which demonstrated occlusion of several coronary arteries including his RCA and LCx with akinesis of inferior and lateral gorman not a CABG candidate, hypertension, and hyperlipidemia who presented for abrupt onset substernal chest pain not completely relieved with rest or nitroglycerin. The patient is resting in bed comfortably. He reports that he had +5/10 chest pain toward the end of his exercise portion of the stress test which was abated and proceeded with pharmacological Lexiscan. He reports low-lying chest pain daily that is a +2-3/10 and ?just enough to know it is there.? He exercised to 10.1 Mets which was significant and better than anticipated. He denies headache, shortness of breath, diaphoresis, abdominal pain, nausea, vomiting, fever, chills, dysuria, diarrhea or constipation. He is voiding without difficulty. He has not had a bowel movement since admission. He is ambulating without assistance. Exam Vital Signs (past 8 hours): - 08/22/18 05:21 08/22/18 08:00 08/22/18 12:14 Temperature 98.3 F 99.5 F 98.5 F Pulse Rate 87 92 H 84 Respiratory Rate 16 16 16 Blood Pressure 132/76 130/84 143/77 H Pulse Oximetry 97 94 93 Oxygen Delivery Method Nasal Cannula Oxygen Flow Rate 2 Narrative Exam Narrative: General: Middle-aged gentleman sitting in bed and in no acute distress, well-developed, well-nourished, appropriately interactive. HEENT: Normocephalic, atraumatic. External ears without defect. Pupils equal, round, and reactive to light and accommodation. Anicteric sclerae, moist conjunctivae, and no lid lag. Oropharynx free of erythema and cobble stoning with moist mucosa. Neck: Supple with full range of motion. No jugular venous distension. No bruits. No lymphadenopathy or thyromegaly. Cardiovascular: Regular rate and rhythm without murmurs, rubs, or gallops appreciated Pulmonary: Clear to auscultation bilaterally without crackles, wheezes, or rhonchi. Normal respiratory effort with no use of accessory muscles. Abdomen: Soft, bowel sounds present, non-tender, non-distended. No hepatosplenomegaly or masses appreciated. Extremities: No clubbing, cyanosis, or edema. Skin: Normal temperature, turgor, and texture; no rash, ulcers, or subcutaneous nodules appreciated. Neurological: Cranial nerves grossly intact. Psychiatric: Normal mood and affect. Alert and oriented to person, place, and time. Objective Labs Result Diagrams: 08/22/18 05:03 08/22/18 05:03 Labs: Laboratory Results - last 24 hr 08/21/18 08/21/18 08/21/18 06:50 12:05 Unknown WBC 6.9 RBC 4.73 Hgb 14.5 Hct 42.9 MCV 90.7 MCH 30.6 MCHC 33.7 RDW 13.8 Plt Count 135 L Neut % (Auto) Not Reportable Lymph % (Auto) Not Reportable [place] % (Auto) Not Reportable Eos % (Auto) Not Reportable Baso % (Auto) Not Reportable Lymph # (Auto) Not Reportable [place] # (Auto) Not Reportable Baso # (Auto) Not Reportable Total Counted 100 Seg Neutrophils % 85.0 H Band Neutrophils % 7.0 Lymphocytes % (Manual) Atypical Lymphs % 3.0 H Monocytes % (Manual) 4.0 Eosinophils % (Manual) 1.0 L Neutrophils # (Manual) 6348 H Platelet Estimate RBC Morphology Normal morphology Sodium Potassium Chloride Carbon Dioxide BUN Creatinine Estimated GFR BUN/Creatinine Ratio Glucose Calcium Total Creatine Kinase 129 CK-MB (CK-2) < 0.22 CK-MB (CK-2) Rel Index 0.2 L Troponin I < 0.012 Chlamy pneumoniae PCR Not detected Adenovirus (PCR) Not detected B.parapertussis DNA PCR Not detected Coronavirus OC43 (PCR) Not detected Coronavirus HKU1 (PCR) Not detected Coronavirus 229E (PCR) Not detected Coronavirus NL63 (PCR) Not detected Human Metapneumovir PCR Not detected Influenza Type A (PCR) Not detected Influenza Type B (PCR) Not detected M. pneumoniae (PCR) Not detected Parainfluenza 1 (PCR) Not detected Parainfluenza 2 (PCR) Not detected Parainfluenza 3 (PCR) Not detected Parainfluenza 4 (PCR) Not detected RSV (PCR) Not detected Entero/Rhino (PCR) Not detected 08/22/18 08/22/18 05:03 05:03 WBC 3.3 L D RBC 4.38 L Hgb 13.4 L Hct 39.7 L MCV 90.6 MCH 30.6 MCHC 33.8 RDW 13.6 Plt Count 105 L Neut % (Auto) Not Reportable Lymph % (Auto) Not Reportable [place] % (Auto) Not Reportable Eos % (Auto) Not Reportable Baso % (Auto) Not Reportable Lymph # (Auto) Not Reportable [place] # (Auto) Not Reportable Baso # (Auto) Not Reportable Total Counted 100 Seg Neutrophils % 47.0 Band Neutrophils % 20.0 H Lymphocytes % (Manual) 9.0 L Atypical Lymphs % 3.0 H Monocytes % (Manual) 21.0 H Eosinophils % (Manual) Neutrophils # (Manual) 2211 L Platelet Estimate Decreased on smear RBC Morphology Normal morphology Sodium 138 Potassium 3.7 Chloride 107 Carbon Dioxide 24 BUN 12 Creatinine 0.80 Estimated GFR > 60.0 BUN/Creatinine Ratio 15.0 Glucose 98 Calcium 8.0 L Total Creatine Kinase CK-MB (CK-2) CK-MB (CK-2) Rel Index Troponin I Chlamy pneumoniae PCR Adenovirus (PCR) B.parapertussis DNA PCR Coronavirus OC43 (PCR) Coronavirus HKU1 (PCR) Coronavirus 229E (PCR) Coronavirus NL63 (PCR) Human Metapneumovir PCR Influenza Type A (PCR) Influenza Type B (PCR) M. pneumoniae (PCR) Parainfluenza 1 (PCR) Parainfluenza 2 (PCR) Parainfluenza 3 (PCR) Parainfluenza 4 (PCR) RSV (PCR) Entero/Rhino (PCR) Assessment & Plan Assessment & Plan narrative: Faheem Zapata is a 53-year-old male with a past medical history significant for coronary artery disease status post inferiolateral MD and cardiac catheterization which demonstrated occlusion of several coronary arteries including his RCA and LCx with akinesis of inferior and lateral gorman not a CABG candidate, hypertension, and hyperlipidemia who presented for abrupt onset substernal chest pain not completely relieved with rest or nitroglycerin. 1. Acute on stable angina, present on admission. Active. -Patient with prior history of inferior and anterolateral MIs with previous stent placement in obtuse marginal artery. -The patient is chest pain is typically resolved with rest, however, the patient has been more reliant on nitroglycerin most recently using nitroglycerin approximately 2 times per month. Chest pain resolved in the ER with morphine and nitro paste. -Called the patient's media planner / buyer Dr. Wiley and discussed the patient with his associate who recommended increasing patient's Imdur from 30 mg to 60 mg and pursuing an echocardiogram and NM stress test. -Increased isosorbide mononitrate from 30 mg to 60 mg daily and will continue patient's other home cardiac medications of aspirin, atorvastatin, metoprolol succinate, and Brilinta. -Continue to monitor closely on telemetry. -Will give morphine, nitroglycerin, and perform EKGs as needed for recurrent chest pain. -Patient to complete stress portion of NM test today and rest portion tomorrow. 2. Acute neurological symptoms secondary to unstable angina and possible ischemia, not present on admission. Resolved. -Patient described left facial numbness and visual change that have resolved and had similar symptoms with former MD. No focal neurological deficits on exam. 3. Chronic dyspepsia, present on admission. Stable. -Patient describes episodic epigastric pain occurring at night where he has to get up and drink water and crackers. His epigastric pain was much worse upon admission and associated with nausea. -Continue Protonix 20 mg daily. 4. CAD, hypertension and hyperlipidemia, chronic, present on admission. Presume stable. -Blood pressure remains well within normal range -Continue home medications as above. Disposition: Patient likely to discharge in tomorrow impending rest portion of NM test. If there is a new or worsened reversible defect seen on rest imaging tomorrow will possibly need transferred for higher level of care.
--- NOTE | 2018-08-22 13:35 | CM.DPC ---
DCP: continued: case discussed in Team Rounds and then met now with pt as planned. Introduced self and role. Dr. Palm is continuing tests tomorrow for pt and if he is stable enough for the outpt setting she plans to d/c him home tomorrow. If this is not the case he will be transferred for a higher level of cardiology care. Pt confirms he is aware of this plan and agreeable to same. He also confirms that his daughter Albertina Zapata has his DPOA and this along with Advanced Directive in in the [facility] files. Confirmed now that the hard copy of same is in the hard copy/red folder chart. Pt also has an alternative DPOA if his daughter is unable to continue in that role. P: as per above.
[2018-08-22] MEDS: ACETAMINOPHEN 325 MG TABLET 650 MG PO (21:22)
[2018-08-23] VITALS (9 sets, daily range): BP systolic 105–138; BP diastolic 59–81; PULSE 61–105; RESP 16–116; TEMP 36.8–37.6; O2SAT 91–96
[2018-08-23] MEDS: SODIUM CHLORIDE 0.9% FLUSH 10 ML IV ×3 (05:43→08:17)
[2018-08-23] MEDS: PANTOPRAZOLE 20 MG TABLET PO (05:43)
[2018-08-23 05:54] LABS: Alanine Aminotransferase 56 IU/L (21-72); Albumin 3.9 g/dL (3.5-5.0); Albumin Globulin Ratio 1.4 (1.0-2.8); Alkaline Phosphatase 74 U/L (38-126); Aspartate Aminotransferase 40 IU/L (17-59); BUN Creatinine Ratio 14.4 (6-22); Bilirubin Total 1.1 mg/dL (0.2-1.3); Blood Urea Nitrogen 13 mg/dL (9-20); Calcium 8.6 mg/dL (8.4-10.2); Carbon Dioxide 27 mmol/L (22-32); Chloride 104 mmol/L (98-107); Estimated Glomerular Filt Rate > 60.0 mL/min (>60); Globulin 2.8 g/dL (1.7-4.1); Glucose 93 mg/dL (70-100); HEMOLYSIS < 15 (0-50); Hematocrit 44.1 % (41-53); Magnesium 1.9 mg/dL (1.6-2.3); Mean Corpuscular Hemoglobin 30.6 PG (26-34); Mean Corpuscular Volume 89.9 fL (80-100); Platelet Count 110 X10^3/uL (150-400); Potassium 3.6 mmol/L (3.4-5.1); Red Blood Cell Count 4.91 X10^6/uL (4.5-5.9); Red Cell Distribution Width 13.6 % (11.6-14.8); Sodium 140 mmol/L (137-145); Total Protein 6.7 g/dL (6.3-8.2); White Blood Cell Count 5.6 X10^3/uL (4.5-11.0)
[2018-08-23 05:55] LABS: Add Manual Diff / Slide Review YES
[2018-08-23 06:20] LABS: Thyroid Stimulating Hormone 8.05 uIU/mL (0.47-4.68)
[2018-08-23 06:32] LABS: Procalcitonin < 0.05 ng/mL (<0.5)
--- NOTE | 2018-08-23 07:03 | PC.NURSE ---
C/O CP 10/11 & Rt. temporal that radiates to the top of his head. SINA Murillo notified. Order received to do STAT ECG, RT. notified. C/O chilss earlier temp. in the adjusted & given warm blankets. Face is flushed & rechecked temp. 99.5.
[2018-08-23] MEDS: MORPHINE 4 MG/ML INJ IV (07:15)
--- NOTE | 2018-08-23 07:48 | PC.NURSE ---
Pt reported chest pain and headache at end of NOC shift. EKG performed, 4mg IV Morphine administered, Dr. Palm notified and Dr. Coulter-Loan Consultant paged. Pt now reports that chest pain has subsided, declines nausea medication for abdominal upset, and reports headache has decreased from 02/10 to 09/10. BP 130/[address] Palm in with Pt at this time.
[2018-08-23] MEDS: ASPIRIN EC 81 MG TABLET PO (08:17)
[2018-08-23] MEDS: METOPROLOL ER 25 MG TABLET PO (08:17)
[2018-08-23 08:28] LABS: Troponin I < 0.012 ng/mL (0.01-0.034)
[2018-08-23 08:31] LABS: Creatine Kinase 72 U/L (55-170)
[2018-08-23 08:33] LABS: Neutrophils Absolute Manual 4368 /uL (3000-5900); RBC Morphology Normal Morphology; Total Cells Counted 100
[2018-08-23 08:44] LABS: Troponin I < 0.012 ng/mL (0.01-0.034)
[2018-08-23] MEDS: ATORVASTATIN 20 MG TABLET 80 MG PO (12:11)
[2018-08-23] MEDS: ISOSORBIDE MONONITRATE ER 60 MG PO (12:11)
[2018-08-23 16:48] LABS: Free T4, Direct Thyroxine 1.24 ng/dL (0.78-2.19)
--- NOTE | 2018-08-23 17:19 | PM.DS.1 ---
History of Present Illness Date Patient Seen: 08/21/18 Chief complaint: Chest Pain Narrative: Written by Bj ANDINO: This is a 53-year-old male patient with extensive cardiac history, including atherosclerosis, TN, hypertension and hyperlipidemia presents to the ER today with chest pain. Patient describes accelerated chest pain today after working on his house in preparation for his daughter's wedding. The patient typically has had episodic chest pain since his TN and stent placement in April reporting taking occasional nitroglycerin as needed for chest pain unrelieved with rest. Today he took 2 nitroglycerin sublinguals and called 911. Patient has a prior history of an anterior lateral and inferior infarct. He has been followed by Dr. [facility] and has Dr. Ramirez as his primary care physician. The patient describes the pain he experienced today as different than his typical chest pain and more severe. He had additional symptoms of chills, fatigue, dry cough and crampy abdominal pain. The patient endorses work and stress intolerance that exacerbates his chest pain and epigastric pain. He has dyspnea on exertion. Typically his anginal pain is resolved with rest however he has been taking nitroglycerin more recently twice monthly. He also reports that he will wake at night with severe epigastric discomfort. He has been working with his physicians and feels that he had been slowly improving with less symptom frequency until today when he feels he over exerted himself. He additionally reports during his episode of chest pain he had left neck and facial numbness with blurriness of the left eye and describes his vision as coning down. Denies ataxia or extremity weakness. He does relate worsening memory with impaired recall. Patient arrived in the emergency department at 11:05 p.m by EMS. His initial vital signs were temperature 100.4?, blood pressure 115/70, heart rate of 104, respirations of 14 and 94% on room air. In the ER he received morphine and nitroglycerin topical paste 1/2 inch. He received normal saline and Zofran for nausea. Chest x-ray was taken which shows no significant infiltrates and no cardiomyopathy. Twelve lead EKG reveals sinus rhythm with ventricular rate at 99 without ectopy or block but reflective of prior inferior and anterior lateral infarcts. On laboratory analysis his CBC is within normal range however his platelets are low at 144, has an INR 1.1 with a PT of 31. He has a total CK that is elevated to 16 however his MB is negative at 0.34 as is his index at 0.2. Troponin is evaluated twice in the emergency room finding both be negative at less than 0.012. On chemistry he has a sodium 136, potassium, 3.6 with a BUN of 15 and creatinine of 0.8. His nonfasting glucose is 106. Patient is pain-free in the emergency department with topical nitro and the patient is admitted for [place] rated chest pain, unstable angina. Discharge Providers Date of admission: 08/21/18 03:47 Primary care physician: Ed Hernandez MD Consults: 08/21/18 05:30 Consult to Discharge Planning Routine Comment: Discharge provider: Julianna Palm DO Discharge Date: 08/23/18 Summary Discharge Diagnosis: 1. Acute on chronic stable angina, present on admission. Acute portion resolved. 2. Acute neurological symptoms secondary to unstable angina and possible ischemia, not present on admission. Resolved. 3. Chronic dyspepsia, present on admission. Stable. 4. CAD, hypertension and hyperlipidemia, chronic, present on admission. Presume stable. 5. Subacute hypothyroidism, present on admission. Stable. Hospital Course: Faheem Zapata is a 53-year-old male with a past medical history significant for coronary artery disease status post inferiolateral TN and cardiac catheterization which demonstrated occlusion of several coronary arteries including his RCA and LCx with akinesis of inferior and lateral gorman not a CABG candidate, hypertension, and hyperlipidemia who presented for abrupt onset substernal chest pain not completely relieved with rest or nitroglycerin. 1. Acute on chronic stable angina, present on admission. Acute portion resolved. -Patient with prior history of inferior and anterolateral MIs with previous stent placement in obtuse marginal artery. -The patient has low level chest pain chronically but he has been more reliant on nitroglycerin most recently, use approximately 2 times per month. Chest pain resolved in the ER with morphine and nitro paste after several hours. -Called the patient's production finisher Dr. Wiley and discussed the patient with his associates who recommended increasing patient's Imdur from 30 mg to 60 mg and discharging home as his nuclear medicine perfusion scan did not demonstrate any new perfusion defect. He has been instructed to follow up closely with Dr. Wiley. -Continued patient's other home cardiac medications of aspirin, atorvastatin, metoprolol succinate, and Brilinta. -Continued to monitor closely on telemetry. -He received morphine, nitroglycerin, and EKGs as needed for recurrent chest pain. 2. Acute neurological symptoms secondary to unstable angina and possible ischemia, not present on admission. Resolved. -Patient described left facial numbness and visual change that have resolved and had similar symptoms with former TN. No focal neurological deficits on exam. 3. Chronic dyspepsia, present on admission. Stable. -Patient describes episodic epigastric pain occurring at night where he has to get up and drink water and crackers. His epigastric pain was much worse upon admission and associated with nausea. -Avoid PPIs as they have been linked to TN and CVA. 4. CAD, hypertension and hyperlipidemia, chronic, present on admission. Presume stable. -Blood pressure remains well within normal range. -Continued home medications as above. 5. Subacute hypothyroidism, present on admission. Stable. -TSH elevated at 8.05. Free T4 normal at 1.24. Patient may need to be treated for subclinical hypothyroidism as he is very lethargic and has cold chills frequently. However, he has significant heart disease and this should be cleared by his production finisher prior to initiation of treatment. Exam Vital Signs (past 8 hours): - 08/23/18 12:00 08/23/18 15:30 Temperature 98.5 F 98.2 F Pulse Rate 95 H 96 H Respiratory Rate 16 18 Blood Pressure 106/73 116/81 Pulse Oximetry 92 91 Oxygen Delivery Method Room Air Oxygen Flow Rate 0 Narrative Exam Narrative: General: Middle-aged gentleman sitting in bed and in no acute distress, well-developed, well-nourished, appropriately interactive. HEENT: Normocephalic, atraumatic. External ears without defect. Pupils equal, round, and reactive to light and accommodation. Anicteric sclerae, moist conjunctivae, and no lid lag. Oropharynx free of erythema and cobble stoning with moist mucosa. Neck: Supple with full range of motion. No jugular venous distension. No bruits. No lymphadenopathy or thyromegaly/thyroid nodules appreciated. Cardiovascular: Regular rate and rhythm without murmurs, rubs, or gallops appreciated Pulmonary: Clear to auscultation bilaterally without crackles, wheezes, or rhonchi. Normal respiratory effort with no use of accessory muscles. Abdomen: Soft, bowel sounds present, non-tender, non-distended. No hepatosplenomegaly or masses appreciated. Extremities: No clubbing, cyanosis, or edema. Skin: Normal temperature, turgor, and texture; no rash, ulcers, or subcutaneous nodules appreciated. Neurological: Cranial nerves grossly intact. Psychiatric: Normal mood and affect. Alert and oriented to person, place, and time. Objective Labs Result Diagrams: 08/23/18 05:16 08/23/18 05:16 Labs: Laboratory Results - last 24 hr 08/23/18 08/23/18 08/23/18 05:16 05:16 05:16 WBC 5.6 D RBC 4.91 Hgb 15.0 Hct 44.1 MCV 89.9 MCH 30.6 MCHC 34.0 RDW 13.6 Plt Count 110 L Neut % (Auto) Not Reportable Lymph % (Auto) Not Reportable [place] % (Auto) Not Reportable Eos % (Auto) Not Reportable Baso % (Auto) Not Reportable Lymph # (Auto) Not Reportable [place] # (Auto) Not Reportable Baso # (Auto) Not Reportable Total Counted 100 Seg Neutrophils % 66.0 Band Neutrophils % 12.0 H Lymphocytes % (Manual) 14.0 L Atypical Lymphs % 1.0 H Monocytes % (Manual) 7.0 Neutrophils # (Manual) 4368 RBC Morphology Normal morphology Sodium 140 Potassium 3.6 Chloride 104 Carbon Dioxide 27 BUN 13 Creatinine 0.90 Estimated GFR > 60.0 BUN/Creatinine Ratio 14.4 Glucose 93 Calcium 8.6 Magnesium 1.9 Total Bilirubin 1.1 AST 40 ALT 56 Alkaline Phosphatase 74 Total Creatine Kinase CK-MB (CK-2) CK-MB (CK-2) Rel Index Troponin I < 0.012 Total Protein 6.7 Albumin 3.9 Globulin 2.8 Albumin/Globulin Ratio 1.4 Procalcitonin < 0.05 TSH Free T4 08/23/18 08/23/18 08/23/18 05:16 05:16 08:07 WBC RBC Hgb Hct MCV MCH MCHC RDW Plt Count Neut % (Auto) Lymph % (Auto) [place] % (Auto) Eos % (Auto) Baso % (Auto) Lymph # (Auto) [place] # (Auto) Baso # (Auto) Total Counted Seg Neutrophils % Band Neutrophils % Lymphocytes % (Manual) Atypical Lymphs % Monocytes % (Manual) Neutrophils # (Manual) RBC Morphology Sodium Potassium Chloride Carbon Dioxide BUN Creatinine Estimated GFR BUN/Creatinine Ratio Glucose Calcium Magnesium Total Bilirubin AST ALT Alkaline Phosphatase Total Creatine Kinase 72 CK-MB (CK-2) TNP CK-MB (CK-2) Rel Index TNP Troponin I < 0.012 Total Protein Albumin Globulin Albumin/Globulin Ratio Procalcitonin TSH 8.05 H Free T4 1.24 Discharge Plan Discharge Plan Patient Disposition: Home Discharge comment: You are being discharged home. Your nuclear medicine perfusion scan did not demonstrate any new evidence of ischemia i.e. heart attack or impending heart attack/new blockage. Your Imdur (isosorbide mononitrate) was increased from 30 mg daily to 60 mg daily to try to help control your daily stable angina. Your thyroid hormone is normal. Your TSH is elevated indicative of subclinical hypothyroidism which may need to be treated and it is recommend to follow up with your PCP, Dr. Quiñones, regarding your recent hospitalization and consideration for treatment of subclinical hypothyroidism. Please follow-up with your production finisher, Dr. Wiley, at his next available appointment to discuss your hospitalization, stable angina (chest pain) and nuclear medicine stress test. In the future, if you continue to have indigestion and heartburn you may use Zantac or Pepcid AC following directions on bottle as needed. Avoid proton pump inhibitors (Prilosec, Prevacid, Nexium, etc) have been linked to heart attack and stroke. Discharge Med Rec/Prescriptions Prescriptions: Continued atorvastatin 80 mg Tablet 80 mg PO DAILY RF: 0 metoprolol succinate 50 mg Tablet Extended Release 24 Hr 25 mg PO BID RF: 0 aspirin 81 mg Tablet,Delayed Release (Dr/Ec) 81 mg PO DAILY RF: 0 nitroglycerin 0.4 mg Tablet, Sublingual 0.4 mg SUBLINGUAL Q5-15M PRN (Reason: Chest Pain) RF: 0 Brilinta 90 mg Tablet 90 mg PO BID RF: 0 Changed isosorbide mononitrate 30 mg Tablet Extended Release 24 Hr 60 mg PO DAILY Qty: 30 RF: 0 Follow up/Referrals: Zeyad Quiñones MD [Physician] - 1 Week Provider Discharge Instructions Diet: Diet as Tolerated Activity: Activity as tolerated and try not to overdo it. Visit Report/Discharge Packet Instructions: DI for Angina Discharge Data Primary Care Provider: Ed Hernandez Attending Provider: Bj Baeza Admit Date/Time: 08/21/18 03:47
--- NOTE | 2018-08-23 17:22 | P.DS_ITS ---
History of Present Illness Date Patient Seen: 08/21/18 Chief complaint: Chest Pain Narrative: Written by Bj ANDINO: This is a 53-year-old male patient with extensive cardiac history, including atherosclerosis, [place], hypertension and hyperlipidemia presents to the ER today with chest pain. Patient describes accelerated chest pain today after working on his house in preparation for his daughter's wedding. The patient typically has had episodic chest pain since his [place] and stent placement in April reporting taking occasional nitroglycerin as needed for chest pain unrelieved with rest. Today he took 2 nitroglycerin sublinguals and called 911. Patient has a prior history of an anterior lateral and inferior infarct. He has been followed by Dr. [facility] and has Dr. Ramirez as his primary care physician. The patient describes the pain he experienced today as different than his typical chest pain and more severe. He had additional symptoms of chills, fatigue, dry cough and crampy abdominal pain. The patient endorses work and stress intolerance that exacerbates his chest pain and epigastric pain. He has dyspnea on exertion. Typically his anginal pain is resolved with rest however he has been taking nitroglycerin more recently twice monthly. He also reports that he will wake at night with severe epigastric discomfort. He has been working with his physicians and feels that he had been slowly improving with less symptom frequency until today when he feels he over exerted himself. He additionally reports during his episode of chest pain he had left neck and facial numbness with blurriness of the left eye and describes his vision as coning down. Denies ataxia or extremity weakness. He does relate worsening memory with impaired recall. Patient arrived in the emergency department at 11:05 p.m by EMS. His initial vital signs were temperature 100.4?, blood pressure 115/70, heart rate of 104, respirations of 14 and 94% on room air. In the ER he received morphine and nitroglycerin topical paste 1/2 inch. He received normal saline and Zofran for nausea. Chest x-ray was taken which shows no significant infiltrates and no cardiomyopathy. Twelve lead EKG reveals sinus rhythm with ventricular rate at 99 without ectopy or block but reflective of prior inferior and anterior lateral infarcts. On laboratory analysis his CBC is within normal range however his platelets are low at 144, has an INR 1.1 with a PT of 31. He has a total CK that is elevated to 16 however his MB is negative at 0.34 as is his index at 0.2. Troponin is evaluated twice in the emergency room finding both be negative at less than 0.012. On chemistry he has a sodium 136, potassium, 3.6 with a BUN of 15 and creatinine of 0.8. His nonfasting glucose is 106. Patient is pain- free in the emergency department with topical nitro and the patient is admitted for [place] rated chest pain, unstable angina. Discharge Providers Date of admission: 08/21/18 03:47 Primary care physician: Ed Hernandez MD Consults: 08/21/18 05:30 Consult to Discharge Planning Routine Comment: Discharge provider: Julianna Palm DO Discharge Date: 08/23/18 Summary Discharge Diagnosis: 1. Acute on chronic stable angina, present on admission. Acute portion resolved. 2. Acute neurological symptoms secondary to unstable angina and possible isc hemia, not present on admission. Resolved. 3. Chronic dyspepsia, present on admission. Stable. 4. CAD, hypertension and hyperlipidemia, chronic, present on admission. Presume stable. 5. Subacute hypothyroidism, present on admission. Stable. Hospital Course: Faheem Zapata is a 53-year-old male with a past medical history significant for coronary artery disease status post inferiolateral WV and cardiac catheterization which demonstrated occlusion of several coronary arteries including his RCA and LCx with akinesis of inferior and lateral gorman not a CABG candidate, hypertension, and hyperlipidemia who presented for abrupt onset sub sternal chest pain not completely relieved with rest or nitroglycerin. 1. Acute on chronic stable angina, present on admission. Acute portion resolved. -Patient with prior history of inferior and anterolateral MIs with previous stent placement in obtuse marginal artery. -The patient has low level chest pain chronically but he has been more reliant on nitroglycerin most recently, use approximately 2 times per month. Chest pain resolved in the ER with morphine and nitro paste after several hours. -Called the patient's cap blocker Dr. Wiley and discussed the patient with his associates who recommended increasing patient's Imdur from 30 mg to 60 mg and discharging home as his nuclear medicine perfusion scan did not demonstrate any new perfusion defect. He has been instructed to follow up closely with Dr. Wiley. -Continued patient's other home cardiac medications of aspirin, atorvastatin, metoprolol succinate, and Brilinta. -Continued to monitor closely on telemetry. -He received morphine, nitroglycerin, and EKGs as needed for recurrent chest pain. 2. Acute neurological symptoms secondary to unstable angina and possible ischemia, not present on admission. Resolved. -Patient described left facial numbness and visual change that have resolved and had similar symptoms with former [place]. No focal neurological deficits on exam. 3. Chronic dyspepsia, present on admission. Stable. -Patient describes episodic epigastric pain occurring at night where he has to get up and drink water and crackers. His epigastric pain was much worse upon admission and associated with nausea. -Avoid PPIs as they have been linked to W[place] and CVA. 4. CAD, hypertension and hyperlipidemia, chronic, present on admission. Presume stable. -Blood pressure remains well within normal range. -Continued home medications as above. 5. Subacute hypothyroidism, present on admission. Stable. -TSH elevated at 8.05. Free T4 normal at 1.24. Patient may need to be treated for subclinical hypothyroidism as he is very lethargic and has cold chills frequently. However, he has significant heart disease and this should be cleared by his cap blocker prior to initiation of treatment. Exam Vital Signs (past 8 hours): - 08/23/18 12:00 08/23/18 15:30 Temperature 98.5 F 98.2 F Pulse Rate 95 H 96 H Respiratory Rate 16 18 Blood Pressure 106/73 116/81 Pulse Oximetry 92 91 Oxygen Delivery Method Room Air Oxygen Flow Rate 0 Narrative Exam Narrative: General: Middle-aged gentleman sitting in bed and in no acute distress, well- developed, well-nourished, appropriately interactive. HEENT: Normocephalic, atraumatic. External ears without defect. Pupils equal, round, and reactive to light and accommodation. Anicteric sclerae, moist conjunctivae, and no lid lag. Oropharynx free of erythema and cobble stoning with moist mucosa. Neck: Supple with full range of motion. No jugular venous distension. No bruits. No lymphadenopathy or thyromegaly/thyroid nodules appreciated. Cardiovascular: Regular rate and rhythm without murmurs, rubs, or gallops appreciated Pulmonary: Clear to auscultation bilaterally without crackles, wheezes, or rhonchi. Normal respiratory effort with no use of accessory muscles. Abdomen: Soft, bowel sounds present, non-tender, non-distended. No hepatosplenomegaly or masses appreciated. Extremities: No clubbing, cyanosis, or edema. Skin: Normal temperature, turgor, and texture; no rash, ulcers, or subcutaneous nodules appreciated. Neurological: Cranial nerves grossly intact. Psychiatric: Normal mood and affect. Alert and oriented to person, place, and time. Objective Labs Result Diagrams: 08/23/18 05:16 08/23/18 05:16 Labs: Laboratory Results - last 24 hr 08/23/18 08/23/18 08/23/18 05:16 05:16 05:16 WBC 5.6 D RBC 4.91 Hgb 15.0 Hct 44.1 MCV 89.9 MCH 30.6 MCHC 34.0 RDW 13.6 Plt Count 110 L Neut % (Auto) Not Reportable Lymph % (Auto) Not Reportable Armstrong % (Auto) Not Reportable Eos % (Auto) Not Reportable Baso % (Auto) Not Reportable Lymph # (Auto) Not Reportable Armstrong # (Auto) Not Reportable Baso # (Auto) Not Reportable Total Counted 100 Seg Neutrophils % 66.0 Band Neutrophils % 12.0 H Lymphocytes % (Manual) 14.0 L Atypical Lymphs % 1.0 H Monocytes % (Manual) 7.0 Neutrophils # (Manual) 4368 RBC Morphology Normal morphology Sodium 140 Potassium 3.6 Chloride 104 Carbon Dioxide 27 BUN 13 Creatinine 0.90 Estimated GFR > 60.0 BUN/Creatinine Ratio 14.4 Glucose 93 Calcium 8.6 Magnesium 1.9 Total Bilirubin 1.1 AST 40 ALT 56 Alkaline Phosphatase 74 Total Creatine Kinase CK-MB (CK-2) CK-MB (CK-2) Rel Index Troponin I < 0.012 Total Protein 6.7 Albumin 3.9 Globulin 2.8 Albumin/Globulin Ratio 1.4 Procalcitonin < 0.05 TSH Free T4 08/23/18 08/23/18 08/23/18 05:16 05:16 08:07 WBC RBC Hgb Hct MCV MCH MCHC RDW Plt Count Neut % (Auto) Lymph % (Auto) Armstrong % (Auto) Eos % (Auto) Baso % (Auto) Lymph # (Auto) Armstrong # (Auto) Baso # (Auto) Total Counted Seg Neutrophils % Band Neutrophils % Lymphocytes % (Manual) Atypical Lymphs % Monocytes % (Manual) Neutrophils # (Manual) RBC Morphology Sodium Potassium Chloride Carbon Dioxide BUN Creatinine Estimated GFR BUN/Creatinine Ratio Glucose Calcium Magnesium Total Bilirubin AST ALT Alkaline Phosphatase Total Creatine Kinase 72 CK-MB (CK-2) TNP CK-MB (CK-2) Rel Index TNP Troponin I < 0.012 Total Protein Albumin Globulin Albumin/Globulin Ratio Procalcitonin TSH 8.05 H Free T4 1.24 Discharge Plan Discharge Plan Patient Disposition: Home Discharge comment: You are being discharged home. Your nuclear medicine perfusion scan did not demonstrate any new evidence of ischemia i.e. heart attack or impending heart attack/new blockage. Your Imdur (isosorbide mononitrate) was increased from 30 mg daily to 60 mg daily to try to help control your daily stable angina. Your thyroid hormone is normal. Your TSH is elevated indicative of subclinical hypothyroidism which may need to be treated and it is recommend to follow up with your PCP, Dr. Quiñones, regarding your recent hospitalization and consideration for treatment of subclinical hypothyroidism. Please follow-up with your cap blocker, Dr. Wiley, at his next available appointment to discuss your hospitalization, stable angina (chest pain) and nuclear medicine stress test. In the future, if you continue to have indigestion and heartburn you may use Zantac or Pepcid AC following directions on bottle as needed. Avoid proton pump inhibitors (Prilosec, Prevacid, Nexium, etc) have been linked to heart attack and stroke. Discharge Med Rec/Prescriptions Prescriptions: Continued atorvastatin 80 mg Tablet 80 mg PO DAILY RF: 0 metoprolol succinate 50 mg Tablet Extended Release 24 Hr 25 mg PO BID RF: 0 aspirin 81 mg Tablet,Delayed Release (Dr/Ec) 81 mg PO DAILY RF: 0 nitroglycerin 0.4 mg Tablet, Sublingual 0.4 mg SUBLINGUAL Q5-15M PRN (Reason: Chest Pain) RF: 0 Brilinta 90 mg Tablet 90 mg PO BID RF: 0 Changed isosorbide mononitrate 30 mg Tablet Extended Release 24 Hr 60 mg PO DAILY Qty: 30 RF: 0 Follow up/Referrals: Zeyad Quiñones MD [Physician] - 1 Week Provider Discharge Instructions Diet: Diet as Tolerated Activity: Activity as tolerated and try not to overdo it. Visit Report/Discharge Packet Instructions: DI for Angina Discharge Data Primary Care Provider: Ed Hernandez Attending Provider: Bj Baeza Admflo Date/Time: 08/21/18 03:47
--- NOTE | 2018-08-23 17:27 | DI.NM.S_ITS ---
DATE OF SERVICE: 08/22/2018 PROCEDURE PERFORMED: Exercise treadmill stress and rest myocardial perfusion imaging with gating to assess ejection fraction and regional wall motion. REFERRING PROVIDER: Julianna Palm DO INDICATIONS: The patient is a 53-year-old male with history of extensive inferolateral VT, now admitted with atypical chest discomfort and normal troponins. EXERCISE TREADMILL TESTING: The patient was able to exercise for a total of 7 minutes 3 seconds on a standard Ariel protocol suggesting moderately impaired exercise capacity with an ARNOLD of +30%. He had a mildly blunted heart rate response to exercise, achieving a maximum heart rate of 132 bpm (78% of his predicted maximum) but had a normal blood pressure response. He had chest pain at rest apparently worsening with exertion. His resting ECG shows deep inferior Q waves with associated ST-segment abnormalities. With stress, there were no significant ST-segment shifts. There were no arrhythmias. At 6 minutes of exercise, at heart rate of 124 bpm, 26.9 mCi of technetium-99 Myoview was injected and he was imaged 15 minutes later. He returned the following day and was reinjected with an additional 25.8 mCi of technetium-99 Myoview and was imaged 30 minutes later, again using a gated SPECT acquisition protocol. FINDINGS: 1. Raw Data: There is fair myocardial tracer uptake, although the patient was unable to raise his left arm producing significant attenuation artifact. The lung/heart ratio is normal at 0.35. While the calculated TID was mildly elevated at 1.33, visually left ventricular volumes appear to be similar on both studies. 2. Quantitative Gated SPECT: Post stress ejection fraction is calculated at 58%. There is absent perfusion in the inferior and inferolateral segments, with probable akinesis but the remaining segments appear to have good contractility and specifically, the anterior wall appears to have good contractility. The resting ejection fraction is estimated at 50% with an end-diastolic volume estimated at 137 mL. 3. Myocardial Perfusion Imaging: Post stress supine images show absent perfusion in the entire inferior wall, inferolateral wall, and [id number] inferior septum. The remaining segments have fairly good perfusion, although there is a very small defect noted in the mid-anterior septum. The prone images show an identical perfusion pattern. The resting images likewise show an identical perfusion pattern without any clear areas of improvement. CONCLUSION: 1. Abnormal myocardial perfusion study. 2. Extensive transmural myocardial infarction involving the entire inferior and inferolateral segments and the [id number]-inferior septum. In addition, there is a small subtle fixed mid anteroseptal defect which would be an unusual a vascular distribution. There is no significant myocardial ischemia identified. 3. Moderately reduced left ventricular systolic function with probable akinesis of the inferior and inferolateral segments and borderline left ventricular enlargement. 4. Moderately impaired exercise capacity without ECG evidence for ischemia. He had chest discomfort throughout the exam, possibly worsening with exercise. 5. Compared to the previous myocardial perfusion imaging study of 12/17/2010, an identical perfusion pattern is seen. The inferior wall, inferolateral wall, and inferior septum appears unchanged as does the mid anteroseptal defect. The previous ejection fraction was estimated at 37% suggesting some improvement.. Faheem Zapata - CARMELA/gilson/ab doc#: [id number]/job#: [id number] dd: 08/23/2018 16:10:00 dt: 08/23/2018 17:06:00 DICTATING MD/COPIES TO: Parminder Coulter MD; Zuleima Rg MD; Julianna Palm DO COPIES MNE: JESSIE YANG
--- NOTE | 2018-08-23 17:40 | PC.NURSE ---
DC pt states to baseline, as states always has 3/10 chest discomfort. post cardiac resting test. Free T4 WNL. rounded on pt regarding DC plan. Pt DC'd home with paperwork, meds, and belongings and instructed about f/u appt and avoidance of PPIs.
== END 2018-08-23 17:41 | disposition home or self-care (01) ==
LOC: ED 08-21 02:42 → AC 08-21 03:48
PROVIDERS: Internal Medicine; Admitting Provider Nurse Practitioner Adult Health; Emergency Provider Emergency Medicine; Family Provider Internal Medicine; PCP Internal Medicine; Visit Provider Nurse Practitioner Adult Health
DX: I25.119 Atherosclerotic heart disease of native coronary artery with unspecified angina pectoris (principal); R07.9 Chest pain, unspecified; I10 Essential (primary) hypertension; E78.5 Hyperlipidemia, unspecified; Z79.82 Long term (current) use of aspirin; R10.13 Epigastric pain; E03.9 Hypothyroidism, unspecified
CPT/HCPCS: 36415; 71045; 78452; 80048; 80053; 80061; 82550; 82553; 83605; 83690; 83735; 84145; 84439; 84443; 84484; 85025; 85610; 85730; 87400; 87633; 93005; 93016; 93017; 93018; 93306; 94760; 94762; 96361; 96374; 96375; 96376; 99284; 99285; G0378; A9502; J2270; J2405; J2765

== ENCOUNTER 2019-05-17 19:13 | Emergency (ER) | payer OTHER, SELFPAY ==
[2018-08-21 04:32] VITALS: BMI 26.5
[2019-05-17] VITALS (7 sets, daily range): BP systolic 90–111; BP diastolic 59–75; PULSE 87–93; RESP 16–22; TEMP 36.4; O2SAT 90–94; BMI 25.8
--- NOTE | 2019-05-17 19:23 | DI.RAD.S_ITS ---
PROCEDURE: XR CHEST 1V INDICATIONS: chest pain TECHNIQUE: One view of the chest was acquired. COMPARISON: [facility], CR, XR CHEST 1V, 08/20/2018, 23:50. FINDINGS: Surgical changes and devices: Postsurgical changes are redemonstrated in the proximal left femur status post ORIF. Lungs and pleura: Lungs are clear. No pleural effusions or pneumothorax. Mediastinum: Mediastinal contours appear normal. Heart size is normal. Bones and chest wall: No suspicious bony lesions. Overlying soft tissues appear unremarkable. IMPRESSION: 1. No acute cardiopulmonary disease. Dictated by: Ronni Madrigal M.D. on 05/17/2019 at 20:18 Approved by: Ronni Madrigal M.D. on 05/17/2019 at 20:18
--- NOTE | 2019-05-17 19:26 | ED_ITS ---
HPI - Syncope General Chief Complaint: Syncope Stated Complaint: Syncope Time Seen by Provider: 05/17/19 19:15 Source: patient and EMS Mode of arrival: EMS Limitations: no limitations History of Present Illness HPI narrative: Patient is a 53-year-old male with history of coronary artery disease and stents is a presenting after syncopal episode witnessed by his daughter. He actually had his wisdom teeth out today he did not eat or drink much of anything. He was having increased pain this evening he took little CBD oil along with 1 5 mg oxycodone and 325 acetaminophen. 30 minutes later he started feeling lightheaded nauseous and had about 1 minutes syncopal episode. No shaking chills blood pressure upon arrival was 90/70. He overall is feeling better. He at no time had any chest pain heart palpitations or shortness of breath. MD complaint: loss of consciousness Onset (ago): minute(s) Duration of episode: 1 Prodromal symptoms: lightheaded Witnessed: yes - by bystander Context: at rest Related Data Home Medications Medication Instructions Recorded Confirmed Brilinta 90 mg PO BID 08/21/18 08/21/18 aspirin 81 mg PO DAILY 08/21/18 08/21/18 atorvastatin 80 mg PO DAILY 08/21/18 08/21/18 metoprolol succinate 25 mg PO BID 08/21/18 08/21/18 nitroglycerin 0.4 mg SUBLINGUAL Q5-15M PRN 08/21/18 08/21/18 Previous Rx's Medication Instructions Recorded isosorbide mononitrate 60 mg PO DAILY #30 tab 08/23/18 Allergies Allergy/AdvReac Type Severity Reaction Status Date / Time No Known Drug Allergies Allergy Verified 08/23/18 14:47 Review of Systems Review of Systems ROS Unobtainable: All systems reviewed & are unremarkable except as noted in HPI and below Constitutional Constitutional: Denies chills, Denies fever(s), Denies lethargy and Denies weakness Eyes Eyes: Denies change in vision, Denies eye discharge, Denies irritation and Denies loss of vision ENT Ears, Nose, Mouth, and Throat: Denies change in voice, Denies neck pain and Denies sore throat Cardiovascular Cardiovascular: Denies chest pain, Reports syncope, Denies irregular heart rhythm, Reports lightheadedness, Denies palpitations, Denies dyspnea, Denies dyspnea on exertion and Denies orthopnea Respiratory Respiratory: Denies cough, Denies dyspnea, Denies dyspnea on exertion and Denies wheezing Gastrointestinal Gastrointestinal: Denies abdominal pain, Denies change in bowel habits, Denies diarrhea, Denies nausea and Denies vomiting Genitourinary Genitourinary: Denies hematuria, Denies flank pain, Denies urinary incontinence and Denies urinary urgency Musculoskeletal Musculoskeletal: Denies neck pain Integumentary/Breasts Skin/Breast: Denies pruritus, Denies erythema, Denies rash and Denies wounds Neurologic Neurologic: Reports syncope, Denies loss of vision and Denies weakness Endocrine Endocrine: Denies palpitations Allergic/Immunologic Allergic/Immunologic: Denies wheezing Patient History Medical History Coronary artery disease (Acute) Hyperlipidemia (Acute) Hypertension (Acute) Surgical History History of shoulder surgery (Acute) S/P angioplasty with stent (Acute) Social History household members: children Smoking Status: Never smoker alcohol intake frequency: a few times a month Substance Use Type: does not use Exam Initial Vital Signs Initial Vital Signs: Vital Signs Temperature 97.5 F L 05/17/19 19:26 Pulse Rate 93 H 05/17/19 19:26 Respiratory Rate 16 05/17/19 19:26 Blood Pressure 90/75 05/17/19 19:26 Pulse Oximetry 94 05/17/19 19:26 GENERAL: Well-appearing, well-nourished and in no acute distress. HEENT: Head atraumatic,EOMI, pupils reactive, face symmetric CARDIOVASCULAR: Regular rate and rhythm without murmurs, rubs or gallops. RESPIRATORY: Breath sounds equal bilaterally, no wheezes rales or rhonchi. ABDOMEN: Soft, nontender. Normoactive bowel sounds all 4 quadrants. No guarding or rebound. EXTREMITIES: Normal range of motion, no clubbing or edema. Neurovascularly intact NEUROLOGICAL: Alert and oriented x4.Normal gait and speech. Cranial nerves II through XII grossly intact. Laboratory Development Technician strength equal bilaterally lower leg extremity strength equal SKIN: Warm, dry, no laceration, no petechiae, no rashes or lesions. Course Orders Ordered: ED Orders 11/14/19 19:23 XR chest 1V Stat EKG-12 Lead Stat 05/17/19 19:24 Complete Blood Count AUTO DIFF Stat Comprehensive Metabolic Panel Stat Lipase Stat Partial Thromboplastin Time Stat Prothrombin Time INR Stat Troponin & CK Cardiac Panel Stat Discontinued Medications Acetaminophen (Tylenol) 650 mg PO NOW ONE Stop: 05/17/19 20:18 Last Admin: 05/17/19 20:35 Dose: Not Given Documented by: SANCHEZ Acetaminophen (Tylenol) 975 mg PO NOW ONE Stop: 05/17/19 20:29 Last Admin: 05/17/19 20:37 Dose: 975 mg Documented by: SANCHEZ Sodium Chloride (Normal Saline 0.9%) 1,000 mls @ 1,000 mls/hr IV BOLUS ONE Stop: 05/17/19 20:23 Last Infusion: 05/17/19 21:16 Dose: 0 mls/hr Documented by: Admin: 05/17/19 20:14 Dose: 1,000 mls/hr Documented by: SANCHEZ Vital Signs Vital signs: Vital Signs - 8 hr 05/17/19 19:26 05/17/19 19:34 05/17/19 20:07 Temperature 97.5 F L Pulse Rate 93 H 92 H 87 Respiratory Rate 16 22 22 Blood Pressure 90/75 Blood Pressure [Left Arm] 107/59 L 97/65 Pulse Oximetry 94 94 90 L 05/17/19 20:15 05/17/19 20:34 05/17/19 20:52 Temperature Pulse Rate 90 93 H 89 Respiratory Rate 18 20 22 Blood Pressure Blood Pressure [Left Arm] 105/70 111/74 102/68 Pulse Oximetry 92 92 94 05/17/19 21:02 Temperature Pulse Rate Respiratory Rate Blood Pressure Blood Pressure [Left Arm] Pulse Oximetry 90 L MDM - Syncope Lab Data Attestation: I reviewed the patient's lab results. Result diagrams: 05/17/19 19:24 05/17/19 19:24 Labs: Lab Results 05/17/19 05/17/19 05/17/19 Range/Units 19:24 19:24 19:24 WBC 12.3 H (4.5-11.0) X10^3/uL RBC 5.44 (4.5-5.9) X10^6/uL Hgb 16.8 (13.5-17.5) g/dL Hct 48.9 (41-53) % MCV 89.9 (80-100) fL MCH 30.8 (26-34) PG MCHC 34.2 (30-36) % RDW 13.1 (11.6-14.8) % Plt Count 220 (150-400) X10^3/uL Neut % (Auto) 91.4 H (50-75) % Lymph % (Auto) 5.5 L (25-40) % Harding % (Auto) 2.9 L (3-14) % Eos % (Auto) 0.0 L (2-4) % Baso % (Auto) 0.2 (0-2) % Neut # (Auto) 67523 H (5995-3006) /uL Lymph # (Auto) 700 L (0433-6413) /uL Harding # (Auto) 400 (0-900) /uL Eos # (Auto) 0 (0-450) /uL Baso # (Auto) 0 (0-100) /uL PT 12.6 (10.1-12.7) SECONDS INR 1.1 (0.9-1.3) APTT 28 D (26.4-36.2) SECONDS Sodium 139 (137-145) mmol/L Potassium 4.4 (3.4-5.1) mmol/L Chloride 102 (98-107) mmol/L Carbon Dioxide 25 (22-32) mmol/L BUN 14 (9-20) mg/dL Creatinine 1.20 (0.66-1.25) mg/dL Estimated GFR > 60.0 (>60) mL/min BUN/Creatinine Ratio 11.7 (6-22) Glucose 159 H (70-100) mg/dL Calcium 9.6 (8.4-10.2) mg/dL Total Bilirubin 1.8 H (0.2-1.3) mg/dL AST 33 (17-59) IU/L ALT 38 (<50) IU/L Alkaline Phosphatase 109 (38-126) U/L Total Creatine Kinase 82 (55-170) U/L CK-MB (CK-2) TNP CK-MB (CK-2) Rel Index TNP Troponin I < 0.012 (0.01-0.034) ng/mL Total Protein 7.5 (6.3-8.2) g/dL Albumin 4.7 (3.5-5.0) g/dL Globulin 2.8 (1.7-4.1) g/dL Albumin/Globulin Ratio 1.7 (1.0-2.8) Lipase 36 (23-300) U/L Imaging Data Chest x-ray: Radiologist's impression: PROCEDURE: XR CHEST 1V INDICATIONS: chest pain TECHNIQUE: One view of the chest was acquired. COMPARISON: [facility], , XR CHEST 1V, 08/20/2018, 23:50. FINDINGS: Surgical changes and devices: Postsurgical changes are redemonstrated in the p roximal left femur status post ORIF. Lungs and pleura: Lungs are clear. No pleural effusions or pneumothorax. Mediastinum: Mediastinal contours appear normal. Heart size is normal. Bones and chest wall: No suspicious bony lesions. Overlying soft tissues appear unremarkable. IMPRESSION: 1. No acute cardiopulmonary disease. Dictated by: Ronni Madrigal M.D. on 05/17/2019 at 20:18 ECG Data Attestation: I personally reviewed and interpreted this ECG as follows: Prior ECG tracings: available for review Interpretation: Normal sinus rhythm rate 89 p.r. interval 161 QRS [address] elevations depressions or T-wave inversions Q-waves noted inferiorly no changes from prior PC also noted similar to previous EKGs in August 2018 MDM Narrative Medical decision making narrative: The patient is oxygen was noted to decrease to 88% while sitting. Awake alert oriented actually comes up up to 93 94% will speaking to him it remained elevated and stable. The patient overall is feeling better blood pressure much improved. He had an ambulation trial no dizziness lightheadedness or shortness of breath. O2 was noted to decrease to 90%. However he is completely asymptomatic. At this time patient's symptoms seem to be a combination of decreased oral intake, hypotensive and pain medication. He overall is feeling much better. At this time I he see no indication for any further imaging. Troponin is negative he has no chest pain. Discharge Plan Departure Patient Disposition: Home Clinical Impression: Vasovagal syncope Discharge Date/Time: 05/17/19 21:26 Instructions: DI for Syncope in Adults (Fainting) Activity Restrictions/Additional Instructions: *YOU HAVE BEEN DIAGNOSED WITH vasovagal syndrome *WHAT TO DO: Passing out today was likely due to a combination of things such as not eating or drinking very much and pain medication which he do not normally take. *CONTINUE TO TAKE MEDICATIONS DIRECTED Recommend holding your blood pressure medications for tonight and restarting everything tomorrow as previously prescribed *FOLLOW UP WITH YOUR PRIMARY CARE PROVIDER IN 2-3 DAYS *RETURN TO ER IF YOU SHOULD HAVE recurrent passing out, chest pain, shortness of breath, dizziness lightheaded OR ANY NEW, WORSENING OR CONCERNING SYMPTOMS Prescriptions: No Action atorvastatin 80 mg Tablet 80 mg PO DAILY RF: 0 metoprolol succinate 50 mg Tablet Extended Release 24 Hr 25 mg PO BID RF: 0 aspirin 81 mg Tablet,Delayed Release (Dr/Ec) 81 mg PO DAILY RF: 0 nitroglycerin 0.4 mg Tablet, Sublingual 0.4 mg SUBLINGUAL Q5-15M PRN (Reason: Chest Pain) RF: 0 Brilinta 90 mg Tablet 90 mg PO BID RF: 0 isosorbide mononitrate 30 mg Tablet Extended Release 24 Hr 60 mg PO DAILY Qty: 30 RF: 0 Referrals: [facility] [Outside] Ed Hernandez MD [Primary Care Provider] -
[2019-05-17 19:36] LABS: Add Manual Diff / Slide Review NO; Basophils Absolute Auto 0 /uL (0-100); Basophils Percent Auto 0.2 % (0-2); Eosinophils Absolute Auto 0 /uL (0-450); Hematocrit 48.9 % (41-53); Hemoglobin 16.8 g/dL (13.5-17.5); Lymphocytes Absolute Auto 700 /uL (1100-4500); Lymphocytes Percent Auto 5.5 % (25-40); Mean Corpuscular HGB Conc 34.2 % (30-36); Mean Corpuscular Hemoglobin 30.8 PG (26-34); Mean Corpuscular Volume 89.9 fL (80-100); Monocytes Absolute Auto 400 /uL (0-900); Monocytes Percent Auto 2.9 % (3-14); Neutrophils Absolute Auto 11200 /uL (1500-7000); Neutrophils Percent Auto 91.4 % (50-75); Platelet Count 220 X10^3/uL (150-400); Red Blood Cell Count 5.44 X10^6/uL (4.5-5.9); Red Cell Distribution Width 13.1 % (11.6-14.8); White Blood Cell Count 12.3 X10^3/uL (4.5-11.0)
--- NOTE | 2019-05-17 19:36 | PC.NURSE ---
Neuro fully intact. CSM wnl.
[2019-05-17 19:40] LABS: INR 1.1 (0.9-1.3); Prothrombin Time 12.6 SECONDS (10.1-12.7)
[2019-05-17 19:43] LABS: PTT Partial Thromboplastin Tim 28 SECONDS (26.4-36.2)
[2019-05-17 19:44] LABS: Alanine Aminotransferase 38 IU/L (<50); Albumin 4.7 g/dL (3.5-5.0); Albumin Globulin Ratio 1.7 (1.0-2.8); Alkaline Phosphatase 109 U/L (38-126); Aspartate Aminotransferase 33 IU/L (17-59); BUN Creatinine Ratio 11.7 (6-22); Bilirubin Total 1.8 mg/dL (0.2-1.3); Blood Urea Nitrogen 14 mg/dL (9-20); Calcium 9.6 mg/dL (8.4-10.2); Carbon Dioxide 25 mmol/L (22-32); Chloride 102 mmol/L (98-107); Creatine Kinase 82 U/L (55-170); Estimated Glomerular Filt Rate > 60.0 mL/min (>60); Globulin 2.8 g/dL (1.7-4.1); Glucose 159 mg/dL (70-100); HEMOLYSIS 18 (0-50); Lipase 36 U/L (23-300); Potassium 4.4 mmol/L (3.4-5.1); Sodium 139 mmol/L (137-145); Total Protein 7.5 g/dL (6.3-8.2)
[2019-05-17 19:55] LABS: Troponin I < 0.012 ng/mL (0.01-0.034)
[2019-05-17] MEDS: SODIUM CHLORIDE 0.9% 1,000 ML 1000 ML IV (20:14)
[2019-05-17] MEDS: ACETAMINOPHEN 325 MG TABLET 975 MG PO (20:37)
--- NOTE | 2019-05-17 21:02 | PC.NURSE ---
Ambulated pt with a pulse ox, and no 02. Pt ambulated with a steady gait, denying any shortness of breath, lightheadedness, or dizziness. O2 sat was steady at 90 throughout the duration of the trial. KANIKA and Dr Tilley aware
== END 2019-05-17 21:26 | disposition home or self-care (01) ==
PROVIDERS: Emergency Provider Emergency Medicine; Family Provider Internal Medicine; PCP Internal Medicine
DX: R55 Syncope and collapse (principal)
CPT/HCPCS: 36415; 71045; 80053; 82550; 83690; 84484; 85025; 85610; 85730; 93005; 96360; 99283; 99285